=== PATIENT | male | born 1970 | race Caucasian/White ===

== ENCOUNTER 2016-05-18 19:54 | Emergency (ER) | payer OTHER ==
[~2016-05-18] VITALS: Ht 210.8 cm; Wt 103.0 kg
[2016-05-18 19:58] VITALS: TEMP 36.7; Ht 210.8 cm; Wt 103.0 kg
[2016-05-18] MEDS ORDERED: IBUP-1050 PO (20:56)
[2016-05-18] MEDS ORDERED: DOXY100C2 PO (21:13)
[2016-05-18 21:15] VITALS: BP 129/60; PULSE 62; O2SAT 95
[2016-05-18] MEDS ORDERED: DOXYCYCLINE HYCLATE 100 MG CAP PO ONE (21:15)
--- NOTE | 2016-05-19 00:36 | EMERGENCY ROOM VISIT NOTE ---
History Report prepared by Sarah: Skylar Mcintosh Under the Supervision of: Dr. Zachariah Verma M.D. First contact with patient: 20:39 Chief Complaint: KNEEPAIN Stated Complaint: RIGHT KNEE PAIN AND SWELLING History of Present Illness The patient is a 45 year old male who presents to the Emergency Room with complaints of constant right knee pain beginning 3 hours prior to arrival. 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 He notes that the knee began to become stiff and then swollen. The knee is also tender to touch over the patella. He denies injury or trauma to the knee, fever , vomiting, chest pain, shortness of breath, abdominal pain, history of knee surgery, or recent illness. He was not working today. He does state that he had a scab over the knee and has a habit of picking at it. 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 Review of Systems See HPI for pertinent positives & negatives. A total of 6 systems reviewed and were otherwise negative. Past Medical & Surgical Medical Problems: (1) No Known Active Medical Problems Family History Patient reports no known family medical history. Social History Smoking Status: Never Smoker Alcohol Use: occasionally Marital Status: Housing Status: lives with family Occupation Status: employed Current/Historical Medications Scheduled Doxycycline Hyclate (Vibramycin), 100 MG PO BID Scheduled PRN Ibuprofen (Advil), 400 MG PO Q6 PRN for Pain Allergies Coded Allergies: No Known Allergies (Unverified , 05/18/16) Physical Exam Vital Signs Date Time Temp Pulse Resp B/P Pulse Ox O2 Delivery O2 Flow Rate FiO2 05/18/16 21:15 62 16 129/60 95 Room Air 05/18/16 19:58 36.7 70 16 114/72 96 Room Air Physical Exam Constitutional: Vital signs reviewed. Eyes: Pupils are equal round reactive to light. Conjunctiva are noninjected. ENT: Pharynx is clear without erythema or exudate. Mucous membranes are moist. Neck supple without meningeal signs. Respiratory: Clear to auscultation bilaterally. Breath sounds are equal bilaterally. Cardiovascular: Regular rate and rhythm. No rubs or gallops. GI: Soft, nondistended and nontender. Bowel sounds are present. Musculoskeletal: Patellar swelling with overlying erythema. No significant joint line tenderness or joint laxity. Abrasion over patella. Integumentary: As above. Neurological: The patient is awake and alert. No focal deficits. Psychiatric: Normal affect. Medical Decision & Procedures Medications Administered Medications (Trade) Dose Ordered Sig/Jeanne Route Start Time Stop Time Status Last Admin Dose Admin Doxycycline Hyclate (Vibramycin Cap) 100 mg ONE ONCE PO 05/18/16 21:15 05/18/16 21:16 DC 05/18/16 21:14 100 MG ED Course 2101: The patient was evaluated in room C8. A complete history and physical exam was performed. 2113: Vibramycin Cap 100 mg PO. 2116: Upon reevaluation, the patient appeared to have improvement of his symptoms. I discussed tonight's findings with him. He verbalized agreement of the treatment plan. He was discharged home. Medical Decision This is a 45-year-old male who presents with right knee pain. Differential diagnosis includes bursitis, septic bursitis, cellulitis. I did perform a limited focused review of portions of the patient's old chart on the electronic medical record. The patient has had no prior visits to this hospital. I did evaluate the patient as noted above. The patient has prepatellar swelling and erythema. He does have an abrasion which she states he has been picking at the area he appears to have a prepatellar bursitis with an overlying cellulitis. The has had no systemic symptoms such as fever or vomiting. He has no significant tenderness over the joint line and has no signs of joint effusion. I did recommend antibiotic treatment and close follow up with his doctor. He was treated with doxycycline and discharged with a prescription for doxycycline. He will use cool compresses and NSAIDs as well. He was discharged in good condition. Impression Primary Impression: Cellulitis of right knee Additional Impression: Bursitis of right knee Scribe Attestation The scribe's documentation has been prepared under my direct and personally reviewed by me in its entirety. I confirm that the note above accurately reflects all work, treatment, procedures, and medical decision making performed by me. Departure Information Dispostion Home / Self-Care Prescriptions Doxycycline Hyclate (VIBRAMYCIN) 100 Mg Cap 100 MG PO BID for 10 Days, #19 CAP Prov: Zachariah Verma M.D. 05/18/16 Referrals No Doctor, Assigned (PCP) Forms HOME CARE DOCUMENTATION FORM, IMPORTANT VISIT INFORMATION Patient Instructions ED Bursitis, My [facility] Additional Instructions You have been examined and treated today on an emergency basis only. This is not a substitute for, or an effort to provide, complete comprehensive medical care. It is impossible to recognize and treat all injuries or illnesses in a single emergency department visit. It is therefore important that you follow up closely with your physician in 2-3 days. Call as soon as possible for an appointment. Return for worsening symptoms or if you develop fever, vomiting, or any other concerning symptoms. Problem Qualifiers
[2016-05-23] MEDS ORDERED: LCTX PO (15:26)
[2016-05-23] MEDS ORDERED: DCL250 PO (15:26)
== END 2016-05-18 21:23 | disposition home or self-care (01) ==
LOC: C.EDB 19:55 → C.EDC 21:23
DX: L03.115 Cellulitis of right lower limb (principal); M70.51 Other bursitis of knee, right knee

== ENCOUNTER 2016-05-20 09:42 | Inpatient (IN) | payer OTHER ==
[~2016-05-20] VITALS: Ht 210.8 cm; Wt 99.3 kg
[~2016-05-20 09:42] MED LIST: DOXY100C2 PO; IBUP-1050 PO
[2016-05-20] MEDS ORDERED: IBUP-1050 PO (10:08)
[2016-05-20] MEDS ORDERED: KETOROLAC TROMETHAMINE 30 MG/ML VIAL IV STA (10:29)
--- NOTE | 2016-05-20 10:44 | EMERGENCY ROOM VISIT NOTE ---
ED Visit Note First contact with patient: 10:33 Patient evaluated with resident. 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 There are several scattered abrasions of the anterior knee and patient clearly report that his symptoms started on on the anterior knee and then spread more deeply. He is compliant with the Doxycycline. Patient appears ill but not toxic. Zosyn IV and weight based Vancomycin ordered. Patient to be admitted.
[2016-05-20] MEDS ORDERED: PIPERACILLIN/TAZOBACTAM 4.5 GM/100ML D5W IV STA (10:47)
[2016-05-20] MEDS ORDERED: ACETAMINOPHEN 500 MG TAB PO STA (10:47)
[2016-05-20] MEDS ORDERED: VANCOMYCIN INJ 1,000 MG in SODIUM CHLORIDE 0.9% 250ML 250 ML IV STA (10:47)
[2016-05-20] MEDS ORDERED: VANCOMYCIN INJ 2,000 MG in SODIUM CHLORIDE 0.9% 500ML 500 ML IV ONE (11:00)
--- NOTE | 2016-05-20 11:07 | EMERGENCY ROOM VISIT NOTE ---
History First contact with patient: 10:12 Chief Complaint: KNEEPAIN Stated Complaint: INFECTION IN RIGHT KNEE, CANNOT WALK History of Present Illness The patient is a 45 year old male who presents to the Emergency Room with complaints of worsening pain and swelling in the right knee. Patient notes that he was seen 2 days ago. Impressions as rupture pre-patellar bursa with cellulitis. Imaging was not done. Patient was discharged on Doxycycline. Since going home, pain and swelling have worsening. For the past day he has noticed streaking proximally in the thigh with associated tenderness and warmth. He is having progressively difficulty with weight bearing and the knee is extremely stiff and painful with flexion. He has been having fevers at home , reporting a temperature 101.5 despite getting Motrin. He gets pain with ambulation and gets nauseated with ambulation. He denies trauma to the knee. Had some scabs on the front of the knee. He denies tick bite. He denies consumption of alcohol and high quantities of meat. He denies any history of joint swelling previously. Review of Systems A 10 point review of systems was negative unless stated above. Past Medical/Surgical History Medical Problems: (1) No Known Active Medical Problems Family History Patient reports no known family medical history. 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 Eyes: Pupils equal, round, and reactive to light. Extraocular muscles are intact. No proptosis. No photophobia. ENT: Mucous membranes are moist. Oropharynx is clear. No sinus tenderness. TMs are clear bilaterally. Cardiovascular: Heart with a regular rate and rhythm. Pulses are palpable and symmetric in all 4 extremities. No pedal edema appreciated. Respiratory: Lungs clear to auscultation bilaterally. No wheezes, rales, or rhonchi appreciated. No accessory muscle use. No retractions. No increased work of breathing. GI: Abdomen soft, nontender, nondistended. Normal active bowel sounds. No abdominal hernias appreciated. No rebound. No guarding. : No CVA tenderness appreciated. Musculoskeletal: No midline cervical or vertebral tenderness. No gross deformities. Right Knee: Marked edema with fluid palpated in the pre-patella space. Patella extremely tender to translation; Restricted range of Motion of the knee to 25 degrees. Diffuse joint line tenderness including quadriceps and patella tendon Marked streaking up the thigh with warmth of the skin Left Knee normal examination Integumentary: Warm, dry, no rashes appreciated. Neurological: Patient awake, alert, and oriented x 3. Cranial nerves two through 12 grossly intact. Motor 5 out of 5 strength bilateral upper and lower extremities. Lymph: No cervical lymphadenopathy appreciated. Medical Decision & Procedures Laboratory Results Test 05/20/16 10:29 Medications Administered Vancomycin 2 g IV Zosyn 4.5 g IV Toradol 30 mg IV Tylenol 1 g IV ED Course 10:15 - Patient seen and assessed Lab orders placed: CBC, BMP, ESR/CRP, Lyme Serology, Blood cultures x 2 Toradol 30 mg IV inj x 1 10:40 - Precepted case with Dr. Barbosa Vancomycin 2 g IV and Zosyn 4.5 g IV one dose each Tyenol 1 g PO 11:00 - Discussion of case; patient failing outpatient antibiotics; febrile with joint swelling and steaking lymphangitis up the thigh Decision made to admit patieny Labs still pending, but patient meets admission criteria based on failed outpatient treatment. 11: 20 - Discussed admission with patient for IV antibiotics; patient agreeable admission Discussed case with CHUCK Hammond regarding case; hospitalist service agrees to admission for IV antibiotics Medical Decision History obtained, physical examination performed and EMR reviewed. Patient presents with knee swelling despite antibiotic treatment as outpatient. Differentials include soft tissue causes such as cellulitis, bursitis, tendonitis Intra-articular causes include: septic joint, intra-articular trauma, Lyme arthritis, crystal arthropathy (gout, pseudogout), inflammatory arthropathy Patient presenting with history of fevers and worsening joint pain and swelling. Noted to be stuff on examination with marked sub-patellar effusion. Considered aspiration of knee joint given swelling; however, this was precluded by risk of introducing infection to the joint if there is an overlying infection with spared intra-articular space. Labs were pending at the time of admission. However, he does meet admission criteria for the following reasons: Worsening pain and swelling, documented fevers at home, worsening lymphangitis spread. Patient requires admission for IV antibiotics. Blood cultures were obtained and empiric doses of Vancomycin and Zosyn. Patient was admitted to the hospitalist service in stable condition. Impression Primary Impression: Cellulitis of right knee Additional Impression: Bursitis of right knee Departure Information Dispostion Being Evaluated By Hospitalist Condition GOOD Referrals No Doctor, Assigned (PCP) Patient Instructions My [facility] Problem Qualifiers
[2016-05-20 11:32] LABS: BASO % 0.1 %; BASO ABS # 0.01 K/uL (0-0.2); COMPLETE YES; EOS % 0.1 %; HEMATOCRIT 41.2 % (42-52); IG% 0.2 %; LYMPH % 4.8 %; LYMPH ABS # 0.74 K/uL (1.2-3.4); MEAN CELL VOLUME 89.6 fL (80-100); MEAN CORPUSCULAR HEMOGLOBIN 30.2 pg (25-34); MEAN CORPUSCULAR HGB CONC 33.7 g/dl (32-36); MEAN PLATELET VOLUME 10.7 fL (7.4-10.4); MONO % 6.9 %; NEUT % 87.9 %; PLATELET COUNT 123 K/uL (130-400); WHITE BLOOD COUNT 15.38 K/uL (4.8-10.8)
[2016-05-20 11:48] LABS: BUN/CREATININE RATIO 12.5 (10-20); C-REACTIVE PROTEIN 14.6 mg/dl (0-0.29); CREATININE 1.1 mg/dl (0.60-1.40); POTASSIUM 3.6 mmol/L (3.5-5.1)
[2016-05-20] MEDS ORDERED: MoRPHine SULFATE 4 MG/ML 1 ML CARP\\VIAL IV PRN (12:00)
[2016-05-20] MEDS ORDERED: OXYCODONE/ACETAMINOPHEN 5-325 TAB PO PRN (12:00)
[2016-05-20] MEDS ORDERED: ONDANSETRON INJ 2 MG/ML 2 ML VIAL IV PRN (12:00)
[2016-05-20] MEDS ORDERED: ACETAMINOPHEN 325 MG TAB PO PRN (12:00)
--- NOTE | 2016-05-20 12:28 | History and Physical ---
History & Physical Date & Time of Service: May 20, 2016 at 12:04 Chief Complaint: Right Knee Pain, Swelling, Redness Primary Care Physician: Dr. Kirstin Burch History of Present Illness 45 year old male who presents to the ER with increasing right knee pain, swelling, and redness. Patient was seen in the ER on 05/18 for right knee pain, redness, and swelling. Patient reports he first noticed the redness Friday evening. He reports the redness was localized to the top of the knee. He had minimal pain and edema. Patient was seen in the ER and diagnosed with cellulitis and bursitis. He was discharged on doxycycline and instructed to take NSAIDs. Patient reports edema has been increasing as well as the pain. He reports he is unable to bear weight on his RLE. He has pain with minimal movement. There is a scab noted to the right knee. Patient reports he kneels a lot and has rough skin on his knees that he picks at at times. When he woke up this morning redness started to extend up his thigh. He also has been running fevers as high as 103 despite taking Motrin around the clock. He reports nausea at times which he feels is due to the high level of pain he has been experiencing. No vomiting, diarrhea, or abdominal pain. He denies chest pain and shortness of breath. No lightheadedness, dizziness, diaphoresis, or syncopal events. In the ER, WBC is 15K. Vitals are stable and the remainder of the labs are unremarkable. Patient was given Vanco and Zosyn. Past Medical/Surgical History Surgical Problems: (1) S/P left knee arthroscopy Status: Chronic Family History Patient reports no known family medical history. negative for premature CAD, DM, or CVA Social History Smoking Status: Never Smoker Alcohol Use: occasionally Marital Status: Immunizations History of Tetanus Vaccine?: Yes Tetanus Immunization Date: August 26, 2006 Allergies Coded Allergies: No Known Allergies (Unverified , 05/18/16) Home Medications Scheduled Doxycycline Hyclate (Vibramycin), 100 MG PO BID Scheduled PRN Ibuprofen (Advil), 400 MG PO Q6 PRN for Pain Review of Systems 10 point review of systems was completed with the pertinent positives and negatives noted per the HPI Physical Exam Vital Signs Date Time Temp Pulse Resp B/P Pulse Ox O2 Delivery O2 Flow Rate FiO2 05/20/16 11:32 82 18 148/63 99 Room Air 05/20/16 09:46 36.6 88 18 113/74 96 Room Air General Appearance: no apparent distress Head: normocephalic Eyes: normal inspection ENT: hearing grossly normal Neck: supple, no JVD Respiratory/Chest: lungs clear, normal breath sounds, no respiratory distress Cardiovascular: regular rate, rhythm, no edema, normal peripheral pulses Abdomen/GI: normal bowel sounds, non tender, soft Extremities/Musculoskelatal: + pertinent finding (right prepatellar swelling, tender to palpation and pain with minimal movement, erythema noted over right knee extending medially, laterally, posteriorly and up the thigh, warm to touch) Neurologic/Psych: no motor/sensory deficits, alert, normal mood/affect, oriented x 3 Skin: normal color, warm/dry Diagnostics Laboratory Results Results Past 24 Hours Test 05/20/16 11:05 Range/Units White Blood Count 15.38 4.8-10.8 K/uL Red Blood Count 4.60 4.7-6.1 M/uL Hemoglobin 13.9 14.0-18.0 g/dL Hematocrit 41.2 42-52 % Mean Corpuscular Volume 89.6 80-100 fL Mean Corpuscular Hemoglobin 30.2 25-34 pg Mean Corpuscular Hemoglobin Concent 33.7 32-36 g/dl Platelet Count 123 130-400 K/uL Mean Platelet Volume 10.7 7.4-10.4 fL Neutrophils (%) (Auto) 87.9 % Lymphocytes (%) (Auto) 4.8 % Monocytes (%) (Auto) 6.9 % Eosinophils (%) (Auto) 0.1 % Basophils (%) (Auto) 0.1 % Neutrophils # (Auto) 13.52 1.4-6.5 K/uL Lymphocytes # (Auto) 0.74 1.2-3.4 K/uL Monocytes # (Auto) 1.06 0.11-0.59 K/uL Eosinophils # (Auto) 0.02 0-0.5 K/uL Basophils # (Auto) 0.01 0-0.2 K/uL RDW Standard Deviation 42.9 36.4-46.3 fL RDW Coefficient of Variation 13.1 11.5-14.5 % Immature Granulocyte % (Auto) 0.2 % Immature Granulocyte # (Auto) 0.03 0.00-0.02 K/uL Erythrocyte Sedimentation Rate 14 0-14 mm/hr Sodium Level 142 136-145 mmol/L Potassium Level 3.6 3.5-5.1 mmol/L Chloride Level 106 98-107 mmol/L Carbon Dioxide Level 30 21-32 mmol/L Anion Gap 6.0 3-11 mmol/L Blood Urea Nitrogen 14 7-18 mg/dl Creatinine 1.10 0.60-1.40 mg/dl Est Creatinine Clear Calc Drug Dose 120.4 ml/min Estimated GFR () 94.1 Estimated GFR (Non- 81.2 BUN/Creatinine Ratio 12.5 10-20 Random Glucose 99 70-99 mg/dl Calcium Level 9.0 8.5-10.1 mg/dl C-Reactive Protein 14.60 0-0.29 mg/dl Microbiology Results 05/20/16 Blood Culture, Received Pending 05/20/16 Blood Culture, Received Pending Impression Assessment and Plan RIGHT KNEE CELLULITIS, POSSIBLE INFECTED BURSITIS - admit to med/surg - presenting with increasing pain, erythema, and edema to the right knee over the past 3 days; was seen in the ER on 05/18 and given doxycycline with no improvement in his symptoms - WBC 15k on presentation, no other SIRS criteria - prepatellar swelling noted with overlying cellulitis - knee XR pending - s/p Vanco and Zosyn in ED, will continue with - blood cultures pending - ortho consult, input appreciated DVT PROPHYLAXIS - SCDs DISPO - In my clinical judgment this beneficiary meets acute admission criteria, established by [facility], that includes being hospitalized through two midnights. Attending Note: Patient is a 45 yr old male with no significant PMH of presents with history of right knee swelling, redness, pain since Friday which has been progressively worsening and patient has been having difficulty with ambulation. Reports associated fever. Patient denies any discharge, trauma, insect bite. Patient has an elevated white count and X ray of the knee is suggestive of prepatellar bursitis. Physical Exam: Vitals signs as noted above General Appearance:Moderately built and nourished, no apparent distress Head: normocephalic, Atraumatic Eyes: normal inspection, EOMI, PERRLA, Anicteric Neck: supple, no JVD, Trachea midline Respiratory/Chest: Normal Vesicular breath sounds, CTA, No accessory muscle use Cardiovascular: S1, S2, NSR, No murmur Abdomen/GI:Soft, Non tender, Bowel sounds present, No guarding/rigidity/ organomegaly Extremities/Musculoskelatal: Right knee is erythematous, swollen, tender and has decreased ROM Neurologic/Psych:AAOX3, grossly no focal neurological deficits Skin:normal color,warm Assessment and Plan: Right knee cellulitis/prepatellar bursitis: Check blood cultures/lactate levels IV antibiotics Pain control Ortho consulted Consider IV fluids if lactate levels elevated I personally reviewed the record. Patient is interviewed and examined at bedside. Patient's care is coordinated with Marta Elias MEDICAL BILLING SPECIALIST. Please refer to the documentation above for details of patient's presentation and for discussion of other issues. VTE Prophylaxis VTE Risk Assessment Done? Y/N: Yes Risk Level: Low
--- NOTE | 2016-05-20 12:31 | DIAGNOSTIC IMAGING REPORT ---
RIGHT KNEE 1 OR 2 VIEWS ROUTINE CLINICAL HISTORY: Worsening erythema and swelling of right knee. COMPARISON: None FINDINGS: Alignment of the right knee is anatomic. There is no joint effusion or fracture. No osseous lesion is present. There is marked prepatellar soft tissue swelling. IMPRESSION: 1. No acute fracture or joint effusion of the right knee. 2. Marked prepatellar soft tissue swelling. While nonspecific, the findings favor prepatellar bursitis. Electronically signed by: Presley Edward M.D. 05/20/2016 12:29 PM Dictated Date/Time: 05/20/2016 12:28 PM
[2016-05-20 12:34] LABS: LYME DISEASE AB IGG NEG (NEG); LYME DISEASE AB IGM NEG (NEG)
[2016-05-20] MEDS ORDERED: PIPERACILL/TAZOBAC CONSULT ACTIVE PRN (14:30)
[2016-05-20] MEDS ORDERED: VANCOMYCIN CONSULT ACTIVE PRN (14:30)
[2016-05-20 15:30] VITALS: BP 112/66; PULSE 69; TEMP 36.6; O2SAT 99; Ht 210.8 cm; Wt 99.3 kg
--- NOTE | 2016-05-20 16:07 | Pharmacy Progress Note ---
Pharmacy Antibiotic Consult Date of Service: May 20, 2016. Pharmacy Dosing Scope Pharmacy is consulted to initiate Vancomycin and Zosyn IV dosing therapy, order appropriate labs and adjust drug dose/frequency. Subjective The patient is a 45 year old male admitted on May 20, 2016 at 11:58. Objective Height (Feet): 6 Height (Inches): 11.00 Weight (Kilograms): 99.300 Lab Results (24hrs): Laboratory Tests Test 05/20/16 11:05 BUN/Creatinine Ratio 12.5 Blood Urea Nitrogen 14 mg/dl Creatinine 1.10 mg/dl White Blood Count 15.38 K/uL Red Blood Count 4.60 M/uL Hemoglobin 13.9 g/dL Hematocrit 41.2 % Mean Corpuscular Volume 89.6 fL Mean Corpuscular Hemoglobin 30.2 pg Mean Corpuscular Hemoglobin Concent 33.7 g/dl Platelet Count 123 K/uL Mean Platelet Volume 10.7 fL Neutrophils (%) (Auto) 87.9 % Lymphocytes (%) (Auto) 4.8 % Monocytes (%) (Auto) 6.9 % Eosinophils (%) (Auto) 0.1 % Basophils (%) (Auto) 0.1 % Neutrophils # (Auto) 13.52 K/uL Lymphocytes # (Auto) 0.74 K/uL Monocytes # (Auto) 1.06 K/uL Eosinophils # (Auto) 0.02 K/uL Basophils # (Auto) 0.01 K/uL Micro Results: Item Value Date Time Blood Culture Received 05/20/16 1114 Blood Pending Blood Culture Received 05/20/16 1105 Blood Pending Assessment & Plan * Pt admitted with cellulitis, possible septic knee. Ortho consulted. * 2/2 BCx pending Vancomycin: * Pt received a Vancomycin 20 mg/kg (2000mg IV) load in the ED. * Kidney function is good; Scr = 1.1, Crcl > 100 ml/min. * No significant risk factors for accumulation. If anything, I suspect the pt will clear Vancomycin quickly. * Start maintenance dose of Vancomycin 15mg/kg IV. * Start first dose in 6 hours to make up for pt not receiving a full 25mg/kg loading dose then proceed with Vancomycin 1500 mg IV [id number]. * Obtain trough prior to the 3rd maintenance dose on 05/21 at 1000. Goal trough 15 - 20 mcg/ml for possible joint infection. Zosyn: * Pt received a loading dose of Zosyn 4.5gm IV x 1 in the ED. * Start maintenance dose of Zosyn 3.3.75gm IV q8 hours (EI) for Crcl > 20 ml/min , BMI < 35 kg/m2, and non-ICU status. Pharmacy will continue to follow and will adjust dose/frequency as necessary. Thank you
[2016-05-20] MEDS ORDERED: INFLUENZA VIRUS QUAD VACCINE 0.5 ML SYR IM. ONE (16:15)
[2016-05-20] MEDS ORDERED: INFLUENZA ADMINISTRATION CHARGE ONE (16:15)
--- NOTE | 2016-05-20 17:07 | Anesthesiology Progress Note ---
Anesthesia Progress Note Date of Service May 20, 2016. Progress Notes The patient is a 45 y/o male scheduled for an I and D of R patella due to septic bursitis. The patient has had a swollen knee for several days. He was started on Doxycycline and Motrin several days ago but his knee has continued to worsen so he was admitted and started on IV abx. He has no other significant PMH. He has had no problems with anesthesia. Labs are significant for WBC 15.4 and platelet 123. Electrolytes are normal. On exam the patient has MP 1 airway with good neck extension. Teeth are intact. Heart is RRR and lungs are clear. His R knee appears red and swollen. The patient is an ASA 2. He was consented for general anesthesia. The patient was counseled to remain NPO after midnight except for sips of water with pills.
--- NOTE | 2016-05-20 17:53 | CONSULTATION REPORT ---
DATE OF CONSULTATION: 05/20/2016 ER CONSULT CHIEF COMPLAINT: Right knee pain. HISTORY OF PRESENT ILLNESS: This patient is a 45-year-old male who presents with a history of pain and discomfort in his right knee. He was apparently seen 2 days prior for redness and swelling of the knee. He was diagnosed with cellulitis and bursitis and placed on doxycycline. The patient has reported increased pain, swelling and fever and increased redness. He presented to the Emergency Room today with what appeared to be worsening septic prepatellar bursitis and is admitted now. MEDICAL AND SURGICAL HISTORY: See admission history and physical. ALLERGIES: No known medical allergies. MEDICATION: Doxycycline 100 b.i.d. PHYSICAL EXAMINATION: GENERAL: Young man, appears his stated age. He is in no distress. EXTREMITIES: Exam of the lower extremities: The right knee shows an extremely large prepatellar collection that is red and warm, that is approximately the size of a large egg. There is cellulitis in the surrounding tissues reported by family member, has decreased since admission. There is some scabbing that is dry on the prepatellar with roughening of the skin to assist him with chronic kneeling. This is also present on the opposite knee. Neurological and vascular function are intact. Radiographs show very significant prepatellar swelling. White blood cell count is elevated at 15.3, CRP is 14.6. IMPRESSION: Septic prepatellar bursitis. PLAN: The patient has just recently eaten. He seems stable on IV antibiotics. He will need operative incision and drainage and most likely packing. We will plan for this on 05/21. This was discussed with the patient. He will be n.p.o. after midnight and plan for surgery in the morning.
[2016-05-20] MEDS: VANCOMYCIN INJ 1,500 MG in SODIUM CHLORIDE 0.9% 500ML 500 ML IV SCH (18:17)
[2016-05-20] MEDS: PIPERACILL/TAZOBAC IV 3.375 GM in DEXTROSE 5% 100ML IV SCH (18:17)
[2016-05-20 22:56] VITALS: BP 108/68; PULSE 70; TEMP 36.8; O2SAT 95
[2016-05-21] VITALS (7 sets, daily range): BP systolic 101–114; BP diastolic 60–69; PULSE 54–82; TEMP 36.2–36.9; O2SAT 93–97
[2016-05-21] MEDS ORDERED: LORAZEPAM 0.5 MG TAB PO STA (00:31)
[2016-05-21] MEDS: PIPERACILL/TAZOBAC IV 3.375 GM in DEXTROSE 5% 100ML IV SCH ×3 (02:14→17:51)
[2016-05-21] MEDS: VANCOMYCIN INJ 1,500 MG in SODIUM CHLORIDE 0.9% 500ML 500 ML IV SCH ×2 (02:14→09:35)
[2016-05-21 06:56] LABS: HEMATOCRIT 35.6 % (42-52); MEAN CELL VOLUME 90.6 fL (80-100); MEAN CORPUSCULAR HEMOGLOBIN 30.3 pg (25-34); MEAN CORPUSCULAR HGB CONC 33.4 g/dl (32-36); PLATELET COUNT 104 K/uL (130-400); RED BLOOD COUNT 3.93 M/uL (4.7-6.1); WHITE BLOOD COUNT 11.44 K/uL (4.8-10.8)
[2016-05-21 07:23] LABS: BUN/CREATININE RATIO 12.9 (10-20); CALCIUM 8.5 mg/dl (8.5-10.1); POTASSIUM 3.8 mmol/L (3.5-5.1)
[2016-05-21] MEDS ORDERED: HYDROmorphone INJ 1 MG/ML SYR IV PRN (08:30)
[2016-05-21] MEDS ORDERED: FENTANYL CITRATE INJ 50 MCG/1 ML 2 ML VIAL IV PRN (08:30)
[2016-05-21] MEDS ORDERED: ATROPINE SULFATE 0.1 MG/ML 5ML SYR IV PRN (08:30)
[2016-05-21] MEDS ORDERED: EpHEDrine SULFATE INJ 50 MG/ML AMP IV PRN (08:30)
[2016-05-21] MEDS ORDERED: ONDANSETRON INJ 2 MG/ML 2 ML VIAL IV PRN ×2 (08:30→15:30)
[2016-05-21] MEDS ORDERED: VANCOMYCIN TROUGH ONE (09:30)
--- NOTE | 2016-05-21 11:53 | Pharmacy Progress Note ---
Pharmacy Antibiotic Prog Note Date of Service: May 21, 2016. Subjective: The patient is currently receiving Vancomycin 1500 mg IV every 8 hours. The patient is currently on day # 2 of IV therapy. Objective: Height (Feet): 6 Height (Inches): 11.00 Weight (Kilograms): 99.300 Levels: Item Value Date Time Vancomycin Level Trough 12.5 mcg/ml 05/21/16 0933 Lab Results (24hrs): Laboratory Tests Test 05/21/16 06:22 BUN/Creatinine Ratio 12.9 Blood Urea Nitrogen 13 mg/dl Creatinine 1.00 mg/dl White Blood Count 11.44 K/uL Micro Results: Item Value Date Time Blood Culture Received 05/20/16 1114 Blood Pending Blood Culture Received 05/20/16 1105 Blood Pending Recent Pertinent Medications: Item Value Date Time Piperacillin Sod/ 115 ml @ 28.75 mls/hr 05/20/16 1800 Tazobactam Sod Q8H/IV 05/21/16 0935 3.375 gm/Dextrose Assessment & Plan: ASSESSMENT: * Pt admitted with cellulitis/septic prepatellar bursitis, initiated on Vancomycin and Zosyn IV * 2/2 BCx remain pending * Pt to have I/D today 05/21/16 PLAN: Vancomycin: * Renal function remains good/stable. No significant risk for drug accumulation. * Trough ordered early to ensure safety/efficacy of dosing. I do not feel that level will rise much more than 15 mcg/mL on current regimen. * My plan is to adjust preemptively prior to knowing true steady state to make sure my dose is more closer to a trough of 20 mcg/mL given indication of septic joint. * Increase dose to Vancomycin 1750 mg IV every 8 hours. * Obtain trough prior to the 0200 dose 05/23/16 @ 0130. * Goal trough 15 - 20 mcg/ml (septic joint) Zosyn: * Continue maintenance dose of Zosyn 3.3.75gm IV q8 hours (EI) for Crcl > 20 ml/ min, BMI < 35 kg/m2, and non-ICU status. Pharmacy will continue to follow and will adjust dose/frequency as necessary. Thank you
[2016-05-21] MEDS ORDERED: MIDAZOLAM HCL 1 MG/ML 2ML VIAL ONE (12:24)
[2016-05-21] MEDS ORDERED: FENTANYL CITRATE INJ 50 MCG/1 ML 2 ML VIAL ONE ×3 (12:24→15:28)
--- NOTE | 2016-05-21 13:00 | Progress Note ---
Internal Med Progress Note Date of Service: May 21, 2016. Provider Documentation: SUBJECTIVE: The patient was seen and examined Complains fo pain right knee Denies any fever ,chills No CP,palpitation,SOB OBJECTIVE: Vital Signs-as noted below Exam: General-No distress at rest Eyes-normal ENT-normal Neck-supple Lungs-clear to ausucltate bilaterally Heart-Regular,no murmur Abdomen-Benign,no masses,bowel sound present Extremities-No edema Right Knee is swollen anteriorly ,redness with tenderness Knee movement is painful in all direction Neuro-AAOx3 Lab data as noted below. ASSESSMENT & PLAN: Prepatellar Bursitis/Cellulitis for Right Knee - presenting with increasing pain, erythema, and edema to the right knee over the past 3 days; -was seen in the ER on 05/18 and given doxycycline with no improvement in his symptoms -started on IV Vanco and Zosyn in ED, will continue with - blood cultures pending - ortho consult, input appreciated -Clinically stable -likely to go for surgery this afternoon DVT PROPHYLAXIS - SCDs DISPO Awaited Vital Signs: Date Time Temp Pulse Resp B/P Pulse Ox O2 Delivery O2 Flow Rate FiO2 05/21/16 08:13 36.9 82 16 114/69 97 Room Air 05/21/16 07:40 Room Air 05/20/16 23:45 Room Air 05/20/16 22:56 36.8 70 17 108/68 95 Room Air 05/20/16 15:30 36.6 69 16 112/66 99 Room Air 05/20/16 14:51 73 18 110/60 100 05/20/16 14:46 73 18 110/60 100 Room Air 05/20/16 14:12 74 16 105/55 99 Room Air 05/20/16 13:30 72 20 116/51 100 Room Air Lab Results: Results Past 24 Hours Test 05/20/16 15:15 05/21/16 06:22 05/21/16 09:33 Range/Units Lactic Acid Level 1.1 0.4-2.0 mmol/L White Blood Count 11.44 4.8-10.8 K/uL Red Blood Count 3.93 4.7-6.1 M/uL Hemoglobin 11.9 14.0-18.0 g/dL Hematocrit 35.6 42-52 % Mean Corpuscular Volume 90.6 80-100 fL Mean Corpuscular Hemoglobin 30.3 25-34 pg Mean Corpuscular Hemoglobin Concent 33.4 32-36 g/dl RDW Standard Deviation 44.4 36.4-46.3 fL RDW Coefficient of Variation 13.3 11.5-14.5 % Platelet Count 104 130-400 K/uL Mean Platelet Volume 11.0 7.4-10.4 fL Sodium Level 143 136-145 mmol/L Potassium Level 3.8 3.5-5.1 mmol/L Chloride Level 109 98-107 mmol/L Carbon Dioxide Level 27 21-32 mmol/L Anion Gap 7.0 3-11 mmol/L Blood Urea Nitrogen 13 7-18 mg/dl Creatinine 1.00 0.60-1.40 mg/dl Est Creatinine Clear Calc Drug Dose 132.4 ml/min Estimated GFR () 105.6 Estimated GFR (Non- 91.1 BUN/Creatinine Ratio 12.9 10-20 Random Glucose 96 70-99 mg/dl Calcium Level 8.5 8.5-10.1 mg/dl Vancomycin Level Trough 12.5 SEE COMMENT mcg/ml
[2016-05-21] MEDS ORDERED: ONDANSETRON INJ 2 MG/ML 2 ML VIAL ONE (14:00)
[2016-05-21] MEDS ORDERED: PROPOFOL IV EMULSION 10 MG/ML 20 ML VIAL IV ONE ×2 (14:33→14:43)
[2016-05-21] MEDS ORDERED: LIDOCAINE HCL 2% 2 ML VIAL (20MG/ML) ONE (14:33)
[2016-05-21] MEDS ORDERED: DEXAMETHASONE SOD INJ 4 MG/ML VIAL ONE (14:33)
[2016-05-21] MEDS ORDERED: BACITRACIN 50,000 UNITS IR ONE (15:08)
--- NOTE | 2016-05-21 15:16 | [facility] Post Operative Brief Note ---
Immediate Operative Summary Operative Date May 21, 2016. Pre-Operative Diagnosis Septic right prepatellar bursitis Post-Operative Diagnosis Septic right prepatellar bursitis Procedure(s) Performed Open Excision and Drainage Right Pre-Patellar Septic Bursa Surgeon Dr. Jesus Manuel Mckeon Damper Fitter Surgeon(s) None Estimated Blood Loss 5ml Findings septic bursa Specimens A. RIGHT KNEE PREPATELLA BURSA Complication(s) None Disposition Recovery Room / PACU
[2016-05-21] MEDS ORDERED: HYDROmorphone INJ 1 MG/ML SYR ONE (15:28)
[2016-05-21] MEDS ORDERED: ALUMINUM/MAGNESIUM/SIMETH (MAALOX MAX) 30 ML UDC PO PRN (15:30)
[2016-05-21] MEDS ORDERED: OXYCODONE HCL IR 5 MG TAB (IMMEDIATE RELEASE) PO PRN (15:30)
[2016-05-21] MEDS ORDERED: BISACODYL 10 MG SUPP PR PRN (15:30)
[2016-05-21] MEDS ORDERED: DiphenhydrAMINE HCL 50 MG/ML VIAL IV PRN (15:30)
[2016-05-21] MEDS ORDERED: METOCLOPRAMIDE HCL INJ 5 MG/ML 2 ML VIAL IV PRN (15:30)
[2016-05-21] MEDS ORDERED: ZOLPIDEM TARTRATE 5 MG TAB PO PRN (15:30)
[2016-05-21] MEDS ORDERED: SOD PHOSPHATE/SOD BIPHOSPHATE ENEMA 132 ML BTL PR PRN (15:30)
--- NOTE | 2016-05-21 16:20 | Anesthesiology Progress Note ---
Anesthesia Post Op Note Date & Time May 21, 2016 at 16:19 Vital Signs Pain Intensity: 3 Vital Signs Past 12 Hours Date Time Temp Pulse Resp B/P Pulse Ox O2 Delivery O2 Flow Rate FiO2 05/21/16 15:44 36.9 122/65 05/21/16 15:42 65 16 99 05/21/16 15:42 64 05/21/16 15:38 120/65 05/21/16 15:37 64 97 05/21/16 15:37 64 16 05/21/16 15:33 122/62 05/21/16 15:32 65 15 99 05/21/16 15:32 65 15 05/21/16 15:28 130/71 05/21/16 15:27 70 15 99 05/21/16 15:27 69 15 05/21/16 15:23 127/73 05/21/16 15:22 66 12 100 05/21/16 15:22 66 12 05/21/16 15:18 129/73 05/21/16 15:17 66 13 99 05/21/16 15:17 68 13 05/21/16 15:15 127/82 05/21/16 15:12 36.5 72 16 127/82 100 Mask 10 05/21/16 08:13 36.9 82 16 114/69 97 Room Air 05/21/16 07:40 Room Air Notes Mental Status: alert / awake / arousable, participated in evaluation Pt Amnestic to Procedure: Yes Nausea / Vomiting: adequately controlled Pain: adequately controlled Airway Patency, RR, SpO2: stable & adequate BP & HR: stable & adequate Hydration State: stable & adequate Anesthetic Complications: no major complications apparent
[2016-05-21] MEDS: MoRPHine SULFATE 2 MG/ML CARP IV PRN ×2 (16:51→21:22)
--- NOTE | 2016-05-21 17:39 | OPERATIVE REPORT ---
DATE OF OPERATION: 05/21/2016 PREOPERATIVE DIAGNOSIS: Septic olecranon bursitis, right knee. POSTOPERATIVE DIAGNOSIS: Same. PROCEDURE: Exploration and excision right prepatellar bursa. SURGEON: Javon Mckeon MD. STUDENT NURSE: None. ANESTHESIA: General. TOURNIQUET TIME: 29 minutes at 350 mmHg. DRAINS: Hemovac x1. CULTURES: None. COMPLICATIONS: None. DESCRIPTION OF PROCEDURE: Following satisfactory general anesthesia, the patient was supine. A tourniquet was placed. The lower extremity was prepared with ChloraPrep and draped sterilely. The tourniquet was inflated without exsanguination. Using the midline incision, the incision was deepened through the subcutaneous tissues. There was a large prepatellar bursa sac. Sharp dissection was carried around the bursa, although there was slight communication anteriorly. The entire bursa was carefully shelled out from the anterior surface of the knee, taking care not to enter the capsule. A large bursa sac was removed and handed off for specimen as well as cultures. The wound was irrigated with 3 liters of pulse lavage with antibiotic. A Hemovac drain was placed. It was felt that the entire bursa was removed; therefore no packing was used. The knee was closed with 2-0 Vicryl deep and surgical jackie. A compression dressing was applied. The tourniquet was deflated. The patient was returned to his bed in stable condition. I attest to the content of the Intraoperative Record and any orders documented therein. Any exceptio ns are noted below.
[2016-05-21] MEDS: VANCOMYCIN INJ 1,750 MG in SODIUM CHLORIDE 0.9% 500ML 500 ML IV SCH (17:51)
[2016-05-21] MEDS: ASPIRIN 325 MG ECTAB PO SCH (21:18)
[2016-05-21] MEDS: SENNA 8.6 MG TAB PO SCH (21:18)
[2016-05-21] MEDS: DOCUSATE SODIUM 100 MG CAP PO SCH (21:18)
[2016-05-21] MEDS: ACETAMINOPHEN 500 MG TAB PO SCH (21:19)
[2016-05-21] MEDS: CeleBREX 200 MG CAP PO SCH (21:19)
[2016-05-22] MEDS: PIPERACILL/TAZOBAC IV 3.375 GM in DEXTROSE 5% 100ML IV SCH ×2 (02:06→09:57)
[2016-05-22] MEDS: VANCOMYCIN INJ 1,750 MG in SODIUM CHLORIDE 0.9% 500ML 500 ML IV SCH ×3 (02:07→18:12)
[2016-05-22 04:02] VITALS: BP 112/70; PULSE 49; TEMP 36.4; O2SAT 96
[2016-05-22] MEDS: ACETAMINOPHEN 500 MG TAB PO SCH ×3 (05:40→20:47)
[2016-05-22 06:56] VITALS: BP 115/66; PULSE 49; TEMP 36.4; O2SAT 98
[2016-05-22 07:13] LABS: CREATININE 0.89 mg/dl (0.60-1.40)
--- NOTE | 2016-05-22 08:51 | Orthopedic Progress Note ---
Orthopedic Progress Note Date of Service May 22, 2016. Subjective Post OP Day: 1 Reports: feeling well, Denies: SOB, calf pain, chest pain, light headedness, nausea / vomiting Additional Notes: PATIENT FEELING SO MUCH BETTER. LESS PRESSURE AND IS ABLE TO BEAR WEIGHT Objective calves soft nontender, N/V intact, dressing C/D/I, hemovac drainage (0CC. MILD SEROUS FLUID IN TUBING) Date Time Temp Pulse Resp B/P Pulse Ox O2 Delivery O2 Flow Rate FiO2 05/22/16 06:56 36.4 49 15 115/66 98 Room Air 05/22/16 04:02 36.4 49 16 112/70 96 Room Air 05/22/16 00:15 Room Air 05/21/16 23:26 36.5 54 16 113/66 96 Room Air 05/21/16 19:48 36.8 69 16 107/64 94 Room Air 05/21/16 19:02 36.7 68 16 112/65 93 Room Air 05/21/16 17:40 36.8 66 17 101/60 95 Room Air 05/21/16 17:08 36.2 62 16 114/66 95 Room Air 05/21/16 16:40 96 Room Air 05/21/16 16:40 96 Room Air 05/21/16 16:34 124/67 05/21/16 16:30 67 15 05/21/16 16:30 65 15 93 05/21/16 16:28 124/64 05/21/16 16:25 77 16 05/21/16 16:25 79 16 93 05/21/16 16:23 126/67 05/21/16 16:20 64 18 93 05/21/16 16:20 64 18 05/21/16 16:18 119/66 05/21/16 16:15 65 16 05/21/16 16:15 66 16 94 05/21/16 16:14 125/65 05/21/16 16:10 62 16 98 05/21/16 16:10 64 16 05/21/16 16:08 133/72 05/21/16 16:05 65 13 98 05/21/16 16:05 66 13 05/21/16 16:03 131/63 05/21/16 16:00 60 13 05/21/16 16:00 60 13 98 05/21/16 15:58 121/66 05/21/16 15:55 67 14 05/21/16 15:55 65 14 98 05/21/16 15:53 130/63 05/21/16 15:50 68 16 94 05/21/16 15:50 69 16 05/21/16 15:48 125/70 05/21/16 15:45 62 8 05/21/16 15:45 61 8 98 05/21/16 15:44 36.9 122/65 05/21/16 15:42 65 16 99 05/21/16 15:42 64 05/21/16 15:38 120/65 05/21/16 15:37 64 97 05/21/16 15:37 64 16 05/21/16 15:33 122/62 05/21/16 15:32 65 15 99 05/21/16 15:32 65 15 05/21/16 15:28 130/71 05/21/16 15:27 70 15 99 05/21/16 15:27 69 15 05/21/16 15:23 127/73 05/21/16 15:22 66 12 100 05/21/16 15:22 66 12 05/21/16 15:18 129/73 05/21/16 15:17 66 13 99 05/21/16 15:17 68 13 05/21/16 15:15 127/82 05/21/16 15:12 36.5 72 16 127/82 100 Mask 10 Assessment & Plan Assessment: POD#1 SP I&D RIGHT KNEE BURSA Plan: CONT IV VANCO WAIT ON CULTURES TO DETERMINE COURSE OF TREATMENT DC DRESSING/DRAIN IN AM. Inhouse Planning Pain Management: PO Tylenol, Oxy IR Discharge Planning Discharge Planning: home
[2016-05-22] MEDS: CeleBREX 200 MG CAP PO SCH ×2 (09:48→20:45)
[2016-05-22] MEDS: MULTIVITAMIN TAB PO SCH (09:49)
[2016-05-22] MEDS: DOCUSATE SODIUM 100 MG CAP PO SCH ×2 (09:49→20:45)
[2016-05-22] MEDS: ASPIRIN 325 MG ECTAB PO SCH ×2 (09:49→20:44)
[2016-05-22] MEDS: PANTOprazole SOD 40 MG TAB PO SCH (09:49)
--- NOTE | 2016-05-22 10:13 | Anesthesiology Progress Note ---
Anesthesia Post Op Note Date & Time May 22, 2016 at 10:13 Vital Signs Pain Intensity: 0.0 Vital Signs Past 12 Hours Date Time Temp Pulse Resp B/P Pulse Ox O2 Delivery O2 Flow Rate FiO2 05/22/16 07:50 Room Air 05/22/16 06:56 36.4 49 15 115/66 98 Room Air 05/22/16 04:02 36.4 49 16 112/70 96 Room Air 05/22/16 00:15 Room Air 05/21/16 23:26 36.5 54 16 113/66 96 Room Air Notes Mental Status: alert / awake / arousable, participated in evaluation Pt Amnestic to Procedure: Yes Nausea / Vomiting: adequately controlled Pain: adequately controlled Airway Patency, RR, SpO2: stable & adequate BP & HR: stable & adequate Hydration State: stable & adequate Anesthetic Complications: no major complications apparent
[2016-05-22 15:17] VITALS: BP 123/75; PULSE 62; TEMP 36.3; O2SAT 97
--- NOTE | 2016-05-22 16:31 | Progress Note ---
Internal Med Progress Note Date of Service: May 22, 2016. Provider Documentation: SUBJECTIVE: The patient was seen and examined S/P I&D and the pain is much improved Denies any fever ,chills No CP,palpitation,SOB OBJECTIVE: Vital Signs-as noted below Exam: General-No distress at rest Eyes-normal ENT-normal Neck-supple Lungs-clear to ausucltate bilaterally Heart-Regular,no murmur Abdomen-Benign,no masses,bowel sound present Extremities-No edema Right Knee is bandaged Pain is improved Neuro-AAOx3 Lab data as noted below. ASSESSMENT & PLAN: Prepatellar Bursitis/Cellulitis for Right Knee - presenting with increasing pain, erythema, and edema to the right knee over the past 3 days; -was seen in the ER on 05/18 and given doxycycline with no improvement in his symptoms -started on IV Vanco and Zosyn in ED - blood cultures negative - ortho consult, input appreciated -S/P I&D -Staph aureus in aspirate -await sensitivity -Continue Vanco,stop Zosyn DVT PROPHYLAXIS - SCDs DISPO Awaited Vital Signs: Date Time Temp Pulse Resp B/P Pulse Ox O2 Delivery O2 Flow Rate FiO2 05/22/16 15:17 36.3 62 14 123/75 97 Room Air 05/22/16 07:50 Room Air 05/22/16 06:56 36.4 49 15 115/66 98 Room Air 05/22/16 04:02 36.4 49 16 112/70 96 Room Air 05/22/16 00:15 Room Air 05/21/16 23:26 36.5 54 16 113/66 96 Room Air 05/21/16 19:48 36.8 69 16 107/64 94 Room Air 05/21/16 19:02 36.7 68 16 112/65 93 Room Air 05/21/16 17:40 36.8 66 17 101/60 95 Room Air 05/21/16 17:08 36.2 62 16 114/66 95 Room Air 05/21/16 16:40 96 Room Air 05/21/16 16:40 96 Room Air 05/21/16 16:34 124/67 05/21/16 16:30 67 15 05/21/16 16:30 65 15 93 Lab Results: Results Past 24 Hours Test 05/22/16 06:08 Range/Units Creatinine 0.89 0.60-1.40 mg/dl Est Creatinine Clear Calc Drug Dose 148.8 ml/min Estimated GFR () 120.5 Estimated GFR (Non- 104.0
[2016-05-22] MEDS: SENNA 8.6 MG TAB PO SCH (20:46)
[2016-05-22 22:50] VITALS: BP 116/71; PULSE 60; TEMP 36.6; O2SAT 98
[2016-05-23] MEDS ORDERED: VANCOMYCIN TROUGH SCH (01:30)
[2016-05-23] MEDS: VANCOMYCIN INJ 1,750 MG in SODIUM CHLORIDE 0.9% 500ML 500 ML IV SCH ×2 (01:32→09:58)
[2016-05-23] MEDS: ACETAMINOPHEN 500 MG TAB PO SCH ×2 (06:11→15:53)
[2016-05-23 06:39] LABS: CREATININE 0.84 mg/dl (0.60-1.40)
[2016-05-23] MEDS: MULTIVITAMIN TAB PO SCH (07:37)
[2016-05-23] MEDS: DOCUSATE SODIUM 100 MG CAP PO SCH (07:38)
[2016-05-23] MEDS: CeleBREX 200 MG CAP PO SCH (07:38)
[2016-05-23] MEDS: ASPIRIN 325 MG ECTAB PO SCH (07:38)
[2016-05-23] MEDS: PANTOprazole SOD 40 MG TAB PO SCH (07:38)
--- NOTE | 2016-05-23 08:13 | Orthopedic Progress Note ---
Orthopedic Progress Note Date of Service May 23, 2016. Subjective Post OP Day: 2 Reports: feeling well, Denies: SOB, calf pain, chest pain, light headedness, nausea / vomiting Objective calves soft nontender, N/V intact, incision C/D/I, A&O x3, toes mobile Date Time Temp Pulse Resp B/P Pulse Ox O2 Delivery O2 Flow Rate FiO2 05/22/16 23:50 Room Air 05/22/16 22:50 36.6 60 16 116/71 98 Room Air 05/22/16 15:45 Room Air 05/22/16 15:17 36.3 62 14 123/75 97 Room Air Assessment & Plan Assessment: POD#2 SP I&D RIGHT KNEE BURSA Plan: CONT IV VANCO CULTURES GROWING STAPH SPECIES, SENSITIVITIES PENDING, CAN LIKELY BE DISCHARGED ON PO MED. DRESSING/DRAIN DC'D TODAY ORTHOPEDICALLY STABLE. FOLLOW UP IN 2 WEEKS FOR STAPLE REMOVAL. [phone] Inhouse Planning Pain Management: PO Tylenol, Oxy IR Discharge Planning Discharge Planning: home
--- NOTE | 2016-05-23 08:16 | Discharge Instructions ---
Discharge Instructions Admission Reason for Admission: Cellulitis Of Right Knee Discharge Discharge Diagnosis / Problem: SP I&D RIGHT KNEE BURSA Discharge Goals Goal(s): Decrease discomfort, Improve function, Increase independence Activity Recommendations Activity Limitations: per Instructions/Follow-up section Weightbearing Status: Right weightbearing (as tolerated) . Instructions / Follow-Up Instructions / Follow-Up ACTIVITY RECOMMENDATIONS: SELF CARE INSTRUCTIONS AFTER TOTAL KNEE REPLACEMENT. 2. Continue working on all exercises taught to you in the hospital. Your goals should be to increase bending of your knee to 90 degrees and beyond and to fully straighten your knee. B. You may progress at your own pace from walking with a walker or crutches to a cane; then to no assistive devices. C. Make walking a part of your daily routine. Be up as much as comfortable with rest periods throughout the day. Rest with leg elevation is very important. Use the ice wrap frequently for the first 3-4 weeks. D. There are no restrictions on activities. You may ride in a car, shop, participate in travel assistant and all social activities. F. You may shower, no tub baths until cleared by your doctor. SPECIAL CARE INSTRUCTIONS: VERY IMPORTANT TO READ AND REVIEW A. There are a few signs you need to watch for after you are home. Call [facility] if you notice any of the followin. Increased severe knee pain. Some pain is expected especially when you exercise. 2. Increased swelling in your leg or knee; pain or swelling of the calf muscle in either lower leg. 3. Any fluid drainage from the incision. 4. Shortness of breath or chest pain. B. Please call [facility] at if you have any concerns or questions about your operation or recovery. The doctor or his nurse will return your call promptly. IMPORTANT: * CALL IF INCREASED PAIN, REDNESS, DRAINAGE OR FEVER GREATER THAT 101. Standard jackie/no adhesive- Please keep incision clean and dry. You may shower. [place] should be removed in 10-14 days at the office. This appointment is likely already scheduled for you. Please call if any increased redness, drainage, or swelling. FOLLOW UP VISIT: If appointment is not already scheduled: Please call [facility] to make a follow-up appointment for 2 weeks after your surgery at . Current Hospital Diet Patient's current hospital diet: Regular Diet Discharge Diet Recommended Diet: Regular Diet Procedures Procedures Performed: Open Excision and Drainage Right Pre-Patellar Septic Bursa Pending Studies Studies pending at discharge: yes List of pending studies: wound sensitivities Medical Emergencies . Who to Call and When: Medical Emergencies: If at any time you feel your situation is an emergency, please call 911 immediately. . Non-Emergent Contact Non-Emergency issues call your: Primary Care Provider . "Provider Documentation" section prepared by Lucita Harris. VTE Core Measure Inpt VTE Proph given/why not?: Other Anticoagulation
--- NOTE | 2016-05-23 14:03 | Pharmacy Progress Note ---
Pharmacy Antibiotic Prog Note Date of Service: May 23, 2016. Subjective: The patient is currently receiving vancomycin 1750 mg iv q 8 hrs for septic knee/cellulitis infection ; s/p I&D The patient is currently on day # 4 of IV therapy. Objective: Height (Feet): 6 Height (Inches): 11.00 Weight (Kilograms): 99.300 Lab Results (24hrs): Laboratory Tests Test 05/23/16 05:10 Creatinine 0.84 mg/dl Assessment & Plan: Patient on vancomycin for cellulitis/septic prepatellar bursitis infection. Patient is s/p I&D with prelim cultures positive for staph species. BC x 2 are no growth to date. Vancomycin: * Trough level this am was therapeutic at ~18 mcg/ml (goal 15-20 mcg/ml); will continue with current regimen * Per ortho notes, patient to be discharged soon and will likely be transitioned to oral therapy pending final results from cultures * Scr remains stable at this time (CrCl >100 ml/min) Pharmacy will continue to follow and will adjust dose/frequency as necessary. Thank you
[2016-05-23] MEDS ORDERED: DICLOXACILLIN SODIUM 250 MG CAP PO ONE (14:06)
[2016-05-23] MEDS ORDERED: LCTX PO (15:26)
[2016-05-23] MEDS ORDERED: DCL250 PO (15:26)
[2016-05-23 15:30] VITALS: BP 116/71; PULSE 60; TEMP 36.6; O2SAT 98
[2016-05-23 15:45] VITALS: BP 121/79; PULSE 65; TEMP 36.8; O2SAT 96
[2016-05-23] MEDS ORDERED: DICLOXACILLIN SODIUM 250 MG CAP PO SCH (18:00)
--- NOTE | 2016-05-24 11:29 | Discharge Summary ---
Discharge Summary Admission Date: May 20, 2016 at 11:58 Discharge Date: May 23, 2016 Discharge Disposition: Home Principal Diagnosis: SP I&D RIGHT KNEE BURSA Secondary Diagnoses/Problems: Please see H&P Consultations: Orthopedic Medication Reconciliation New Medications: Lactobacillus Acidophilus (Lactinex) Tab 1 TAB PO TID for 10 Days, #30 TAB Dicloxacillin Sodium (Dicloxacillin Sodium) 250 Mg Cap 250 MG PO Q6 for 7 Days, #28 CAP Continued Medications: Ibuprofen (Advil) 200 Mg Tab 400 MG PO Q6 PRN for Pain, TAB Discontinued Medications: Doxycycline Hyclate (Vibramycin) 100 Mg Cap 100 MG PO BID for 10 Days, #19 CAP Admission Information HPI (per Admitting provider): 45 year old male who presents to the ER with increasing right knee pain, swelling, and redness. Patient was seen in the ER on 05/18 for right knee pain, redness, and swelling. Patient reports he first noticed the redness Friday evening. He reports the redness was localized to the top of the knee. He had minimal pain and edema. Patient was seen in the ER and diagnosed with cellulitis and bursitis. He was discharged on doxycycline and instructed to take NSAIDs. Patient reports edema has been increasing as well as the pain. He reports he is unable to bear weight on his RLE. He has pain with minimal movement. There is a scab noted to the right knee. Patient reports he kneels a lot and has rough skin on his knees that he picks at at times. When he woke up this morning redness started to extend up his thigh. He also has been running fevers as high as 103 despite taking Motrin around the clock. He reports nausea at times which he feels is due to the high level of pain he has been experiencing. No vomiting, diarrhea, or abdominal pain. He denies chest pain and shortness of breath. No lightheadedness, dizziness, diaphoresis, or syncopal events. In the ER, WBC is 15K. Vitals are stable and the remainder of the labs are unremarkable. Patient was given Vanco and Zosyn. Past Medical/Surgical History Surgical Problems: (1) S/P left knee arthroscopy Status: Chronic Family History Patient reports no known family medical history. negative for premature CAD, DM, or CVA Social History Smoking Status: Never Smoker Alcohol Use: occasionally Marital Status: Immunizations History of Tetanus Vaccine?: Yes Tetanus Immunization Date: August 26, 2006 Allergies Coded Allergies: No Known Allergies (Unverified , 05/18/16) Home Medications Scheduled Doxycycline Hyclate (Vibramycin), 100 MG PO BID Scheduled PRN Ibuprofen (Advil), 400 MG PO Q6 PRN for Pain Review of Systems 10 point review of systems was completed with the pertinent positives and negatives noted per the HPI Physical Ex - H&P Physical Exam Vital Signs Date Time Temp Pulse Resp B/P Pulse Ox O2 Delivery O2 Flow Rate FiO2 05/20/16 11:32 82 18 148/63 99 Room Air 05/20/16 09:46 36.6 88 18 113/74 96 Room Air General Appearance: no apparent distress Head: normocephalic Eyes: normal inspection ENT: hearing grossly normal Neck: supple, no JVD Respiratory/Chest: lungs clear, normal breath sounds, no respiratory distress Cardiovascular: regular rate, rhythm, no edema, normal peripheral pulses Abdomen/GI: normal bowel sounds, non tender, soft Extremities/Musculoskelatal: + pertinent finding (right prepatellar swelling, tender to palpation and pain with minimal movement, erythema noted over right knee extending medially, laterally, posteriorly and up the thigh, warm to touch) Neurologic/Psych: no motor/sensory deficits, alert, normal mood/affect, oriented x 3 Skin: normal color, warm/dry Diagnostics - H&P Diagnostics Laboratory Results Results Past 24 Hours Test 05/20/16 11:05 Range/Units White Blood Count 15.38 4.8-10.8 K/uL Red Blood Count 4.60 4.7-6.1 M/uL Hemoglobin 13.9 14.0-18.0 g/dL Hematocrit 41.2 42-52 % Mean Corpuscular Volume 89.6 80-100 fL Mean Corpuscular Hemoglobin 30.2 25-34 pg Mean Corpuscular Hemoglobin Concent 33.7 32-36 g/dl Platelet Count 123 130-400 K/uL Mean Platelet Volume 10.7 7.4-10.4 fL Neutrophils (%) (Auto) 87.9 % Lymphocytes (%) (Auto) 4.8 % Monocytes (%) (Auto) 6.9 % Eosinophils (%) (Auto) 0.1 % Basophils (%) (Auto) 0.1 % Neutrophils # (Auto) 13.52 1.4-6.5 K/uL Lymphocytes # (Auto) 0.74 1.2-3.4 K/uL Monocytes # (Auto) 1.06 0.11-0.59 K/uL Eosinophils # (Auto) 0.02 0-0.5 K/uL Basophils # (Auto) 0.01 0-0.2 K/uL RDW Standard Deviation 42.9 36.4-46.3 fL RDW Coefficient of Variation 13.1 11.5-14.5 % Immature Granulocyte % (Auto) 0.2 % Immature Granulocyte # (Auto) 0.03 0.00-0.02 K/uL Erythrocyte Sedimentation Rate 14 0-14 mm/hr Sodium Level 142 136-145 mmol/L Potassium Level 3.6 3.5-5.1 mmol/L Chloride Level 106 98-107 mmol/L Carbon Dioxide Level 30 21-32 mmol/L Anion Gap 6.0 3-11 mmol/L Blood Urea Nitrogen 14 7-18 mg/dl Creatinine 1.10 0.60-1.40 mg/dl Est Creatinine Clear Calc Drug Dose 120.4 ml/min Estimated GFR () 94.1 Estimated GFR (Non- 81.2 BUN/Creatinine Ratio 12.5 10-20 Random Glucose 99 70-99 mg/dl Calcium Level 9.0 8.5-10.1 mg/dl C-Reactive Protein 14.60 0-0.29 mg/dl Microbiology Results 05/20/16 Blood Culture, Received Pending 05/20/16 Blood Culture, Received Pending Impression - H&P Impression Assessment and Plan RIGHT KNEE CELLULITIS, POSSIBLE INFECTED BURSITIS - admit to med/surg - presenting with increasing pain, erythema, and edema to the right knee over the past 3 days; was seen in the ER on 05/18 and given doxycycline with no improvement in his symptoms - WBC 15k on presentation, no other SIRS criteria - prepatellar swelling noted with overlying cellulitis - knee XR pending - s/p Vanco and Zosyn in ED, will continue with - blood cultures pending - ortho consult, input appreciated DVT PROPHYLAXIS - SCDs DISPO - In my clinical judgment this beneficiary meets acute admission criteria, established by [facility], that includes being hospitalized through two midnights. Attending Note: Patient is a 45 yr old male with no significant PMH of presents with history of right knee swelling, redness, pain since Friday which has been progressively worsening and patient has been having difficulty with ambulation. Reports associated fever. Patient denies any discharge, trauma, insect bite. Patient has an elevated white count and X ray of the knee is suggestive of prepatellar bursitis. Physical Exam: Vitals signs as noted above General Appearance:Moderately built and nourished, no apparent distress Head: normocephalic, Atraumatic Eyes: normal inspection, EOMI, PERRLA, Anicteric Neck: supple, no JVD, Trachea midline Respiratory/Chest: Normal Vesicular breath sounds, CTA, No accessory muscle use Cardiovascular: S1, S2, NSR, No murmur Abdomen/GI:Soft, Non tender, Bowel sounds present, No guarding/rigidity/ organomegaly Extremities/Musculoskelatal: Right knee is erythematous, swollen, tender and has decreased ROM Neurologic/Psych:AAOX3, grossly no focal neurological deficits Skin:normal color,warm Assessment and Plan: Right knee cellulitis/prepatellar bursitis: Check blood cultures/lactate levels IV antibiotics Pain control Ortho consulted Consider IV fluids if lactate levels elevated I personally reviewed the record. Patient is interviewed and examined at bedside. Patient's care is coordinated with Marta Elias THREADING MACHINE OPERATOR. Please refer to the documentation above for details of patient's presentation and for discussion of other issues. VTE Prophylaxis VTE Risk Assessment Done? Y/N: Yes Risk Level: Low Physical Exam (per Admitting): General Appearance: no apparent distress Head: normocephalic Eyes: normal inspection ENT: hearing grossly normal Neck: supple, no JVD Respiratory/Chest: lungs clear, normal breath sounds, no respiratory distress Cardiovascular: regular rate, rhythm, no edema, normal peripheral pulses Abdomen/GI: normal bowel sounds, non tender, soft Extremities/Musculoskelatal: + pertinent finding (right prepatellar swelling , tender to palpation and pain with minimal movement, erythema noted over right knee extending medially, laterally, posteriorly and up the thigh, warm to touch) Neurologic/Psych: no motor/sensory deficits, alert, normal mood/affect, oriented x 3 Skin: normal color, warm/dry Hospital Course Prepatellar Bursitis/Cellulitis for Right Knee - presenting with increasing pain, erythema, and edema to the right knee over the past 3 days; -was seen in the ER on 05/18 and given doxycycline with no improvement in his symptoms -started on IV Vanco and Zosyn in ED - blood cultures negative - ortho consult, input appreciated -S/P I&D -Staph aureus in aspirate -await sensitivity -Continue Vanco,stop Zosyn DVT PROPHYLAXIS - SCDs DISPO Awaited Total time spent on discharge = 35 minutes This includes examination of the patient, discharge planning, medication reconciliation, and communication with other providers. Discharge Instructions Reason for Admission: Cellulitis Of Right Knee Discharge Discharge Diagnosis / Problem: SP I&D RIGHT KNEE BURSA Discharge Goals Goal(s): Decrease discomfort, Improve function, Increase independence Activity Recommendations Activity Limitations: per Instructions/Follow-up section Weightbearing Status: Right weightbearing (as tolerated) . Instructions / Follow-Up Instructions / Follow-Up ACTIVITY RECOMMENDATIONS: SELF CARE INSTRUCTIONS AFTER TOTAL KNEE REPLACEMENT. 2. Continue working on all exercises taught to you in the hospital. Your goals should be to increase bending of your knee to 90 degrees and beyond and to fully straighten your knee. B. You may progress at your own pace from walking with a walker or crutches to a cane; then to no assistive devices. C. Make walking a part of your daily routine. Be up as much as comfortable with rest periods throughout the day. Rest with leg elevation is very important. Use the ice wrap frequently for the first 3-4 weeks. D. There are no restrictions on activities. You may ride in a car, shop, participate in technical manager [employer] plant and all social activities. F. You may shower, no tub baths until cleared by your doctor. SPECIAL CARE INSTRUCTIONS: VERY IMPORTANT TO READ AND REVIEW A. There are a few signs you need to watch for after you are home. Call [facility] if you notice any of the followin. Increased severe knee pain. Some pain is expected especially when you exercise. 2. Increased swelling in your leg or knee; pain or swelling of the calf muscle in either lower leg. 3. Any fluid drainage from the incision. 4. Shortness of breath or chest pain. B. Please call [facility] at if you have any concerns or questions about your operation or recovery. The doctor or his nurse will return your call promptly. IMPORTANT: * CALL IF INCREASED PAIN, REDNESS, DRAINAGE OR FEVER GREATER THAT 101. Standard jackie/no adhesive- Please keep incision clean and dry. You may shower. Breeden should be removed in 10-14 days at the office. This appointment is likely already scheduled for you. Please call if any increased redness, drainage, or swelling. FOLLOW UP VISIT: If appointment is not already scheduled: Please call [facility] [place] to make a follow-up appointment for 2 weeks after your surgery at . Current Hospital Diet Patient's current hospital diet: Regular Diet Discharge Diet Recommended Diet: Regular Diet Procedures Procedures Performed: Open Excision and Drainage Right Pre-Patellar Septic Bursa Pending Studies Studies pending at discharge: yes List of pending studies: wound sensitivities Medical Emergencies . Who to Call and When: Medical Emergencies: If at any time you feel your situation is an emergency, please call 911 immediately. . Non-Emergent Contact Non-Emergency issues call your: Primary Care Provider . "Provider Documentation" section prepared by Lucita Harris. VTE Core Measure Inpt VTE Proph given/why not?: Other Anticoagulation <Electronically signed by Lucita Harris PRasheedA.> <Electronically signed by Dale Kothari M.D.> Signed: 05/23/16 0816 Signed: 05/23/16 0817 The status of this report is Signed * If report status is Draft, the document has not been finalized by the responsible provider. Addendum: 05/23/16 1527 Addendum: Neda Ramsey M.D. on 05/23/16 @ 15:27 Discharge Inst - Addendum Addendum Notes: Your PCP's office will call with appointment in 7 days Addendum Provider: Addendum Notes were documented by provider Neda Ramsey. (Neda Ramsey M.D.) Additional Copies To Kirstin Burch D.O.
== END 2016-05-23 16:30 | disposition home or self-care (01) | DRG 603 ==
LOC: ENRESERVDT → ENRESERVTM → C.EDB 09:43 → C.MSN 11:58
PROVIDERS: ADMIT Internal Medicine; ATTEND Internal Medicine
PROC: 0MB Bursae and Ligaments, Excision (ICD-10-PCS; principal; 2016-05-21 13:30)
DX: L03.115 Cellulitis of right lower limb (principal); M71.161 Other infective bursitis, right knee; B95.61 Methicillin susceptible Staphylococcus aureus infection as the cause of diseases classified elsewhere

== ENCOUNTER 2020-10-17 08:03 | Inpatient (IN) ==
[2020-10-17] MEDS ORDERED: cefTRIAXone SODIUM 2,000 MG/70 ML BAG IV STA (08:32)
--- NOTE | 2020-10-17 08:38 | Emergency Department Note ---
History of Present Illness General Chief complaint: Infection Stated complaint: INFECTION IN LEFT FOOT Time Seen by Provider: 10/17/20 08:18 History of Present Illness Maximum Pain Intensity: 8 This is a 50-year-old male who presents to the emergency department via private vehicle with complaints of "infection left foot". The patient notes that this past Friday he was in [place] at a basketball tournament. He states that he had new shoes at the time. He states that he began with some discomfort between the toes of the left foot. He remove the shoe and this seemed to impro ve somewhat but then worsened. He then notes that he developed skin discoloration between the toes of the left foot therefore prompting [facility]:30 [facility] on this past Friday. He started on p.o. Bactrim. He has been taking this as prescribed. The patient denies any known trauma or injury. The area was outlined. He also to follow-up yesterday with PCP. He points to the space tween the second and third toes as a location of now a dark discoloration and redness that he notes progresses towards the left ankle. He does have pictures to document progression and states that initially it looked improved yesterday but now this morning seems to be worsening. He denies any other history of injury or infection to this foot. He does note a history of right knee infection that was surgically washed out previously. No other pertinent past medical history, surgeries or allergies. He feels chilled and somewhat nauseous but no fevers or vomiting. Home Medications Medication Instructions Recorded Confirmed Type ibuprofen 200 mg PO Q6H PRN 10/17/20 10/17/20 History sulfamethoxazole-trimethoprim 1 tab PO BID 10/17/20 10/17/20 History [Bactrim DS] Allergies Allergy/AdvReac Type Severity Reaction Status Date / Time No Known Allergies Allergy Verified 10/17/20 09:15 Past Med/Surg History Medical History No pertinent past medical history Surgical History H/O knee surgery Family History Denies family history of Ovarian cancer Prostate cancer Myocardial infarction Breast cancer Colorectal cancer Social History Smoking Status: Never smoker Hx Alcohol Use: Yes Alcohol type: beer Alcohol Intake Frequency: Monthly or Less Hx Substance Use: No Preferred Language: Italian Communication Ability: Effective marital status: Current Living Situation: Spouse and Family current occupational status: employed 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 Feels Safe at Home: Yes Childhood Exposure to Second-Hand Smoke: Yes Dental Care, Regularly: Yes Physical Activity Frequency: Daily Seatbelt Use: always Sunscreen Use: Yes Review of Systems A total of 10 systems reviewed and were otherwise negative Physical Exam Vital Signs Vital Signs - 24 hr 10/17/20 08:08 10/17/20 10:34 10/17/20 10:51 Temperature 36.4 C L Temperature Source Oral Pulse Rate 91 H Pulse Rate [Finger] 60 Respiratory Rate 16 16 Respiratory Effort / Characteristics Non-Labored Spontaneous Respiratory Depth Normal Respiratory Pattern Regular Blood Pressure 108/67 Blood Pressure [Right Arm] 122/68 Blood Pressure Mean 80 Blood Pressure Mean [Right Arm] 86 Pulse Oximetry 96 96 Oxygen Delivery Method Room Air Room Air Room Air Sepsis Recent Fever Within 48 Hours No Sepsis New/Unexplained Change in Mental Status N/A Sepsis Action Taken by Nursing No Action Required VITAL SIGNS - Vital signs and nursing notes were reviewed. Stable and afebrile. GENERAL -50-year-old male appearing his stated age who is in no acute distress. Communicates well with provider and answers questions appropriately. SKIN -there is an area of darkened grayish/blackish tissue in between the second and third toes of the left foot with associated erythema tracking towards the left ankle overlying the dorsum of the left foot. There is edema noted between the second and third toe. No drainage at this time. HEAD - NC/AT. NECK - Neck with FROM. No nuchal rigidity. LUNGS - Chest wall symmetric without accessory muscle use, intercostals retractions, or central cyanosis. Normal vesicular breath sounds CTA B/L. No wheezes, rales, or rhonchi appreciated. CARDIAC - RRR with S1/S2. No murmur, rubs, or gallops appreciated. EXTREMITIES - No clubbing or peripheral cyanosis. Skin as above. There is decreased range of motion of the toes of the left foot secondary to pain and edema. No crepitus. He is neurovascularly intact in the left lower extremity. +5/5 strength noted in UE/LE bilaterally. NEUROLOGIC - Cranial nerves II through XII grossly intact. PSYCH - A&O, and cooperates fully with examiner. Pt is very pleasant and interacts well with examiner. Course Administered Medications Discontinued Medications Ceftriaxone Sodium (Rocephin) 2,000 mg in 70 mls @ 140 mls/hr IV NOW STA Stop: 10/17/20 09:01 Last Infusion: 10/17/20 10:36 Dose: 0 mls/hr Documented by: [id number] Admin: 10/17/20 09:19 Dose: 140 mls/hr Documented by: [id number] Medical Decision Making Laboratory Data Result diagrams: 10/17/20 08:47 10/17/20 08:47 Lab Results 10/17/20 10/17/20 10/17/20 Range/Units 08:47 08:47 08:47 WBC 5.01 (4.8-10.8) K/uL RBC 4.51 L (4.7-6.1) M/uL Hgb 13.8 L (14.0-18.0) g/dL Hct 40.6 L (42-52) % MCV 90.0 (80-100) fL MCH 30.6 (25-34) pg MCHC 34.0 (32-36) g/dL RDW Std Deviation 42.1 (36.4-46.3) fL RDW Coeff of Damaris 12.7 (11.5-14.5) % Plt Count 136 (130-400) K/uL MPV 10.3 (7.4-10.4) fL Immature Gran % (Auto) 0.2 % Neut % (Auto) 78.0 % Lymph % (Auto) 10.8 % [place] % (Auto) 10.0 % Eos % (Auto) 0.8 % Baso % (Auto) 0.2 % Neut # (Auto) 3.91 (1.4-6.5) K/uL Lymph # (Auto) 0.54 L (1.2-3.4) K/uL [place] # (Auto) 0.50 (0.11-0.59) K/uL Eos # (Auto) 0.04 (0-0.5) K/uL Baso # (Auto) 0.01 (0-0.2) K/uL Immature Gran # (Auto) 0.01 (0.00-0.02) K/uL ESR 11 (0-15) mm/hr Sodium 137 (136-145) mmol/L Potassium 3.9 (3.5-5.1) mmol/L Chloride 106 (98-107) mmol/L Carbon Dioxide 26 (21-32) mmol/L Anion Gap 4.0 (3-11) BUN 12 (7-18) mg/dl Creatinine 1.18 (0.6-1.4) mg/dl Est Cr Clr Drug Dosing Not Reportable Est GFR ( Amer) 83.5 ml/min Est GFR (Non-Af Amer) 72.0 ml/min BUN/Creatinine Ratio 10.1 (10-20) Glucose 122 H (70-99) mg/dl Lactate (0.4-2.0) mmol/L Calcium 9.0 (8.5-10.1) mg/dl Total Bilirubin 0.5 (0.2-1) mg/dl AST 13 L (15-37) U/L ALT 21 (12-78) U/L Alkaline Phosphatase 68 (45-117) U/L C-Reactive Protein 3.19 H (0-0.29) mg/dl Total Protein 6.9 (6.4-8.2) gm/dl Albumin 3.7 (3.4-5.0) gm/dl Globulin 3.1 (2.5-4.0) gm/dl Albumin/Globulin Ratio 1.2 (0.9-2) Procalcitonin (0-0.5) ng/ml COVID-19 Eval Order SARS-CoV-2 (PCR) (Negative) 10/17/20 10/17/20 10/17/20 Range/Units 08:47 08:47 09:13 WBC (4.8-10.8) K/uL RBC (4.7-6.1) M/uL Hgb (14.0-18.0) g/dL Hct (42-52) % MCV (80-100) fL MCH (25-34) pg MCHC (32-36) g/dL RDW Std Deviation (36.4-46.3) fL RDW Coeff of Damaris (11.5-14.5) % Plt Count (130-400) K/uL MPV (7.4-10.4) fL Immature Gran % (Auto) % Neut % (Auto) % Lymph % (Auto) % [place] % (Auto) % Eos % (Auto) % Baso % (Auto) % Neut # (Auto) (1.4-6.5) K/uL Lymph # (Auto) (1.2-3.4) K/uL [place] # (Auto) (0.11-0.59) K/uL Eos # (Auto) (0-0.5) K/uL Baso # (Auto) (0-0.2) K/uL Immature Gran # (Auto) (0.00-0.02) K/uL ESR (0-15) mm/hr Sodium (136-145) mmol/L Potassium (3.5-5.1) mmol/L Chloride (98-107) mmol/L Carbon Dioxide (21-32) mmol/L Anion Gap (3-11) BUN (7-18) mg/dl Creatinine (0.6-1.4) mg/dl Est Cr Clr Drug Dosing Est GFR ( Amer) ml/min Est GFR (Non-Af Amer) ml/min BUN/Creatinine Ratio (10-20) Glucose (70-99) mg/dl Lactate 1.2 (0.4-2.0) mmol/L Calcium (8.5-10.1) mg/dl Total Bilirubin (0.2-1) mg/dl AST (15-37) U/L ALT (12-78) U/L Alkaline Phosphatase (45-117) U/L C-Reactive Protein (0-0.29) mg/dl Total Protein (6.4-8.2) gm/dl Albumin (3.4-5.0) gm/dl Globulin (2.5-4.0) gm/dl Albumin/Globulin Ratio (0.9-2) Procalcitonin < 0.05 (0-0.5) ng/ml COVID-19 Eval Order Covid19 at [facility] SARS-CoV-2 (PCR) (Negative) 10/17/20 Range/Units 09:13 WBC (4.8-10.8) K/uL RBC (4.7-6.1) M/uL Hgb (14.0-18.0) g/dL Hct (42-52) % MCV (80-100) fL MCH (25-34) pg MCHC (32-36) g/dL RDW Std Deviation (36.4-46.3) fL RDW Coeff of Damaris (11.5-14.5) % Plt Count (130-400) K/uL MPV (7.4-10.4) fL Immature Gran % (Auto) % Neut % (Auto) % Lymph % (Auto) % [place] % (Auto) % Eos % (Auto) % Baso % (Auto) % Neut # (Auto) (1.4-6.5) K/uL Lymph # (Auto) (1.2-3.4) K/uL [place] # (Auto) (0.11-0.59) K/uL Eos # (Auto) (0-0.5) K/uL Baso # (Auto) (0-0.2) K/uL Immature Gran # (Auto) (0.00-0.02) K/uL ESR (0-15) mm/hr Sodium (136-145) mmol/L Potassium (3.5-5.1) mmol/L Chloride (98-107) mmol/L Carbon Dioxide (21-32) mmol/L Anion Gap (3-11) BUN (7-18) mg/dl Creatinine (0.6-1.4) mg/dl Est Cr Clr Drug Dosing Est GFR ( Amer) ml/min Est GFR (Non-Af Amer) ml/min BUN/Creatinine Ratio (10-20) Glucose (70-99) mg/dl Lactate (0.4-2.0) mmol/L Calcium (8.5-10.1) mg/dl Total Bilirubin (0.2-1) mg/dl AST (15-37) U/L ALT (12-78) U/L Alkaline Phosphatase (45-117) U/L C-Reactive Protein (0-0.29) mg/dl Total Protein (6.4-8.2) gm/dl Albumin (3.4-5.0) gm/dl Globulin (2.5-4.0) gm/dl Albumin/Globulin Ratio (0.9-2) Procalcitonin (0-0.5) ng/ml COVID-19 Eval Order SARS-CoV-2 (PCR) NEGATIVE (Negative) Imaging Data Radiologist's Impression: Foot X-Ray 10/17/20 08:33 LEFT FOOT 3 VIEWS CLINICAL HISTORY: Left foot infection. FINDINGS: 3 views of the left foot are obtained No prior studies are available for comparison at the time of dictation. The skeletal structures are well mineralized. No fracture is seen. There is no bony erosion or periostitis. The joint spaces of the foot are maintained. Mild spurring is seen along the dorsal aspect of the tarsal bones. Mild soft tissue edema is suggested overlying the fifth metatarsophalangeal joint. No subcutaneous gas or radiodense foreign body is identified. IMPRESSION: 1. No acute bony abnormality is identified. 2. Soft tissue swelling is suggested overlying the fifth metatarsophalangeal flavia nt. Clinical correlation will be required. Electronically signed by: Ricci Schmidt M.D. 10/17/2020 8:57 AM MDM Narrative Patient was seen and evaluated as above in room C08. Review was performed of nursing notes and vital signs. I did review pertinent previous visits and patient history. After obtaining a thorough history and physical examination the above work up was performed. Patient presents to us today with erythema and skin discoloration to the left foot. There does appear to be an area of potential necrosis between the second and third MTP joint on the dorsum of the foot measuring about a centimeter in diameter. The patient did provide a photo documentation of the timeline of events since the erythema and edema began. Options of care were discussed with the patient. IV access established. Labs were drawn. He was given IV Rocephin. No leukocytosis. Mild anemia noted with hemoglobin of 13.8. No emergent metabolic disturbance. There is CRP elevation at 3.19. Pro-Cristobal normal. Covid testing negative. X-ray was obtained and was negative for foreign body. Given the patient's worsening symptoms despite current course of p.o. antibiotics for almost 2 days now I do believe that further evaluation and management inpatient setting is warranted. Case discussed with the hospitalist. I also spoke to Dr. Mejía of orthopedics regarding this. Patient will be evaluated here in the hospital today by orthopedics. An ultrasound of the left lower extremity to assess arterial flow was recommended. Please refer to further documentation regarding his stay. GCS: 15 In the evaluation and treatment of this patient the following differential diagnoses were entertained: Cellulitis, necrotic infection, arterial compromise, trauma, injury, fracture, dislocation, subluxation, contusion, among others. Impression & Plan Cellulitis of foot, left Discharge Plan Visit Data Chief Complaint: Infection Stated Complaint: INFECTION IN LEFT FOOT ED Provider: Duncan Pizano ED Midlevel Provider: Toño Galeano Discharge Problem: Cellulitis of foot, left Patient Disposition: Admitted As Inpatient Condition: Good Discharge Instructions Interventions: ED Discharge Assessment Last Done: 10/17/20 10:51 Forms Stand Alone Forms: [facility], Virtual Emergency Department, Important Visit Information Prescriptions Prescriptions: No Action sulfamethoxazole-trimethoprim [Bactrim DS] 800-160 mg tablet 1 tab PO BID RF: 0 ibuprofen 200 mg Tablet 200 mg PO Q6H PRN (Reason: Pain) RF: 0 Referrals Referrals: Mundo Mcclure DO [Primary Care Provider] -
--- NOTE | 2020-10-17 08:59 | XRay Report ---
LEFT FOOT 3 VIEWS CLINICAL HISTORY: Left foot infection. FINDINGS: 3 views of the left foot are obtained No prior studies are available for comparison at the time of dictation. The skeletal structures are well mineralized. No fracture is seen. There is no bon y erosion or periostitis. The joint spaces of the foot are maintained. Mild spurring is seen along th e dorsal aspect of the tarsal bones. Mild soft tissue edema is suggested overlying the fifth metatars ophalangeal joint. No subcutaneous gas or radiodense foreign body is identified. IMPRESSION: 1. No acute bony abnormality is identified. 2. Soft tissue swelling is suggested overlying the fifth metatarsophalangeal joint. Clinical correlat ion will be required. Electronically signed by: Ricci Schmidt M.D. 10/17/2020 8:57 AM
[2020-10-17 09:04] LABS: Basophils # (auto) 0.01 K/uL (0-0.2); Basophils % (auto) 0.2 %; Eosinophils # (auto) 0.04 K/uL (0-0.5); Eosinophils % (auto) 0.8 %; Hematocrit (blood only) 40.6 % (42-52); Hemoglobin 13.8 g/dL (14.0-18.0); Immature Granulocytes # (auto) 0.01 K/uL (0.00-0.02); Immature Granulocytes % (auto) 0.2 %; Lymphocytes # (auto) 0.54 K/uL (1.2-3.4); Lymphocytes % (auto) 10.8 %; Mean Corpuscular Hemoglobin 30.6 pg (25-34); Mean Platelet Volume 10.3 fL (7.4-10.4); Neutrophils # (auto) 3.91 K/uL (1.4-6.5); Platelet Count 136 K/uL (130-400); RDW Coefficient of Variation 12.7 % (11.5-14.5); RDW Standard Deviation 42.1 fL (36.4-46.3); Red Blood Count 4.51 M/uL (4.7-6.1); White Blood Count 5.01 K/uL (4.8-10.8)
[2020-10-17 09:19] LABS: Alanine Aminotransferase 21 U/L (12-78); Albumin Level 3.7 gm/dl (3.4-5.0); Aspartate Aminotransferase 13 U/L (15-37); BUN Creatinine Ratio 10.1 (10-20); Blood Urea Nitrogen 12 mg/dl (7-18); C Reactive Protein 3.19 mg/dl (0-0.29); Carbon Dioxide 26 mmol/L (21-32); Chloride 106 mmol/L (98-107); Est GFR (African American) 83.5 ml/min; Glucose 122 mg/dl (70-99); Potassium 3.9 mmol/L (3.5-5.1); Sodium 137 mmol/L (136-145)
[2020-10-17 09:22] LABS: Albumin Globulin Ratio 1.2 (0.9-2); Alkaline Phosphatase 68 U/L (45-117); Bilirubin,Total 0.5 mg/dl (0.2-1); Globulin 3.1 gm/dl (2.5-4.0); Total Protein 6.9 gm/dl (6.4-8.2)
--- NOTE | 2020-10-17 10:31 | History & Physical Report ---
Date of Service October 17, 2020 Assessment & Plan (1) Cellulitis of foot, left: (2) Skin necrosis: Mr. Jin is a 50-year-old male without chronic medical conditions who presents acutely to [facility] ER today with a Left Foot Cellulitis and Interdigital Necrosis between the Left 2nd and 3rd Toes. His complaints include pain, swelling, and redness of his left foot, a necrotic appearing interdigital space between the left 2nd and 3rd toes, and he had fevers and chills last evening. Patient was in [place] this past weekend for a basketball tournament with his son and he was wearing a new pair of shoes, and felt some rubbing in various places, although not in the interdigital space or the primary focus of his problem. He had a small scab on his left 3rd toe pre-existing that he thinks he got when his son stepped on his foot within the past week. Patient awoke on the morning of 10/15/2020 and had pain, swelling, and erythema of his left foot which was made worse by walking on it. He does get a pins and needle sensation in this area as well and his toes feel stiff. Patient sought medical attention at [facility] on the evening of 10/15/2020, and he was started on Bactrim DS. He thought this may initially be helping, but yesterday the erythema and redness spread further up his left foot. He met with his PCP on 10/16/2020 -- and Bactrim DS was continued. Last evening he developed fever and chills stating that he could not get warm. He also felt feverish this morning but did not take his temperature at any time. Again, today when he looked at his foot the erythema had spread even further up onto his anterior left ankle, and he developed a very dark area between his left 2nd and 3rd toes. He has not had any drainage from any of these areas. He denies any headache, stiff neck, malaise, or arthralgias. Other than these scab he has on his left 3rd toe, he has not had any penetrating injuries to his foot at any time. In the ER his CRP is elevated at 3.19 mg/dl. Procalcitonin and Lactate levels are pending. CBC with diff shows a mild anemia but his WBC is within normal limits. Blood cultures x 2 have been drawn. Patient received IV Rocephin 2 grams in the ER. X-ray of his left shows soft tissue edema but No evidence of gas bubbles, foreign objects, or juan-ostial disruption. Recommend the followin. Admit to Med-Surg floor. 2. Monitor daily labs including CBC with diff, BMP, and inflammatory markers. 3. Await BCx results. 4. Orthopedic Surgery consult due to concern for necrotizing process -- Dr. Mejía/[facility] aware. 5. IV Zosyn 3.375 g every 8 hours. 6. IV Clindamycin 900 mg every 8 hours. 7. Tylenol, Tramadol, and Oxycodone have been ordered for pain control. 8. LE Arterial Ultrasound to rule out arterial supply compromise as requested by Ortho. History of Present Illness Chief Complaint: -- Interdigital Necrosis between Left 2nd and 3rd Toes. -- Left Foot Cellulitis. Primary Care Provider: Mundo Mcclure DO Mr. Jin is a 50-year-old male without chronic medical conditions who presents acutely to [facility] ER today complaining of pain, swelling, and redness of his left foot, a necrotic appearing interdigital space between the left 2nd and 3rd toes, and he had fevers and chills last evening. Patient was in [place] this past weekend for a basketball tournament with his son and he was wearing a new pair of shoes, and felt some rubbing in various places, although not in the interdigital space or the primary focus of his problem is. He had a small scab on his left 3rd toe pre-existing that he thinks he got when his son stepped on his foot within the past week. Patient awoke on the morning of 10/15/2020 and had pain, swelling, and erythema of his left foot which was made worse by walking on it. He does get a pins and needle sensation in this area as well and his toes feel stiff. Patient sought medical attention at [facility] on the evening of 10/15/2020, and he was started on Bactrim DS. He thought this may initially be helping, but yesterday the erythema and redness spread up dorsum of his foot. He met with his PCP on 10/16/2020 -- and Bactrim DS was continued. Last evening he developed fever and chills stating that he could not get warm. He also felt feverish this morning but did not take his temperature at any time. Again, today when he looked at his foot the erythema had spread even further up to his anterior left ankle, and he developed a very dark area between his left 2nd and 3rd toes. He has not had any drainage from any of these areas. He denies any headache, stiff neck, malaise, or arthralgias. Other than these scab he has on his left 3rd toe, he has not had any penetrating injuries to his foot at any time. His past medical history includes a septic right infrapatellar bursitis which required surgical intervention, washouts. Patient does not have any history of MRSA or any other resistant organisms to his knowledge. Allergies Allergy/AdvReac Type Severity Reaction Status Date / Time No Known Allergies Allergy Verified 10/17/20 09:15 Home Medications Medication Instructions Recorded Confirmed Type ibuprofen 200 mg PO Q6H PRN 10/17/20 10/17/20 History sulfamethoxazole-trimethoprim 1 tab PO BID 10/17/20 10/17/20 History [Bactrim DS] Past Med/Surg History Medical History No pertinent past medical history Surgical History H/O knee surgery Family History Denies family history of Ovarian cancer Prostate cancer Myocardial infarction Breast cancer Colorectal cancer Social History Smoking Status: Never smoker Hx Alcohol Use: Yes Alcohol type: beer Alcohol Intake Frequency: Monthly or Less Hx Substance Use: No Preferred Language: Palestinian Communication Ability: Effective [employer] Attendant Required: No Beliefs That Will Affect Care: None marital status: Current Living Situation: Spouse and Family current occupational status: employed 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 HEENT: Head is atraumatic, normocephalic. EOM's intact. Facies symmetric. No perioral cyanosis. NECK: No JVD. JVP is at the level of the clavicle sitting upright. Carotid upstrokes are + 2 bilaterally. No bruits are noted. CHEST/LUNGS: Clear to auscultation throughout all lung henao. No wheezes, rales, or crackles. CVS: S1 and S2 are regular without murmurs, gallops, or rubs. PMI is nondisplaced. No lifts, heaves, or thrills. No abdominal aortic or renal bruits. ABDOMINAL EXAM: Bowel sounds are present. No masses, organomegaly, or tenderness. EXTREMITIES: No clubbing or cyanosis. No edema. Intact posterior tibial, dorsalis pedis, and radial pulses bilaterally. NEUROLOGIC EXAM: Patient is awake, alert, and oriented. Pleasant and cooperative. Answers questions appropriately. Speech is clear. Normal movement in all 4 extremities. Gait pattern is unremarkable. DERMATOLOGIC EXAM: Examination of his left foot reveals a necrotic appearing area between his left 2nd and 3rd toes, eschar is present on his left 3rd toe over the PIP joint. There is erythema, warmth, tenderness, and edema involving left foot extending up on to his left anterior ankle. Erythema has been outlined with a marker. Results & Data Results & Data ([facility]) Vital Signs (Past 12 Hours) Vital Signs Temp Pulse Resp BP Pulse Ox 10/17/20 08:08 36.4 C L 91 H 16 108/67 96 Laboratory Results Laboratory Results - last 24 hr 10/17/20 10/17/20 10/17/20 08:47 08:47 08:47 WBC 5.01 RBC 4.51 L Hgb 13.8 L Hct 40.6 L MCV 90.0 MCH 30.6 MCHC 34.0 RDW Std Deviation 42.1 RDW Coeff of Damaris 12.7 Plt Count 136 MPV 10.3 Immature Gran % (Auto) 0.2 Neut % (Auto) 78.0 Lymph % (Auto) 10.8 Madison % (Auto) 10.0 Eos % (Auto) 0.8 Baso % (Auto) 0.2 Neut # (Auto) 3.91 Lymph # (Auto) 0.54 L Madison # (Auto) 0.50 Eos # (Auto) 0.04 Baso # (Auto) 0.01 Immature Gran # (Auto) 0.01 ESR 11 Sodium 137 Potassium 3.9 Chloride 106 Carbon Dioxide 26 Anion Gap 4.0 BUN 12 Creatinine 1.18 Est Cr Clr Drug Dosing Not Reportable Est GFR ( Amer) 83.5 Est GFR (Non-Af Amer) 72.0 BUN/Creatinine Ratio 10.1 Glucose 122 H Lactate Calcium 9.0 Total Bilirubin 0.5 AST 13 L ALT 21 Alkaline Phosphatase 68 C-Reactive Protein 3.19 H Total Protein 6.9 Albumin 3.7 Globulin 3.1 Albumin/Globulin Ratio 1.2 Procalcitonin COVID-19 Eval Order SARS-CoV-2 (PCR) 10/17/20 10/17/20 10/17/20 08:47 08:47 09:13 WBC RBC Hgb Hct MCV MCH MCHC RDW Std Deviation RDW Coeff of Damaris Plt Count MPV Immature Gran % (Auto) Neut % (Auto) Lymph % (Auto) Madison % (Auto) Eos % (Auto) Baso % (Auto) Neut # (Auto) Lymph # (Auto) Madison # (Auto) Eos # (Auto) Baso # (Auto) Immature Gran # (Auto) ESR Sodium Potassium Chloride Carbon Dioxide Anion Gap BUN Creatinine Est Cr Clr Drug Dosing Est GFR ( Amer) Est GFR (Non-Af Amer) BUN/Creatinine Ratio Glucose Lactate 1.2 Calcium Total Bilirubin AST ALT Alkaline Phosphatase C-Reactive Protein Total Protein Albumin Globulin Albumin/Globulin Ratio Procalcitonin < 0.05 COVID-19 Eval Order Covid19 at [facility] SARS-CoV-2 (PCR) 10/17/20 09:13 WBC RBC Hgb Hct MCV MCH MCHC RDW Std Deviation RDW Coeff of Damaris Plt Count MPV Immature Gran % (Auto) Neut % (Auto) Lymph % (Auto) Madison % (Auto) Eos % (Auto) Baso % (Auto) Neut # (Auto) Lymph # (Auto) Madison # (Auto) Eos # (Auto) Baso # (Auto) Immature Gran # (Auto) ESR Sodium Potassium Chloride Carbon Dioxide Anion Gap BUN Creatinine Est Cr Clr Drug Dosing Est GFR ( Amer) Est GFR (Non-Af Amer) BUN/Creatinine Ratio Glucose Lactate Calcium Total Bilirubin AST ALT Alkaline Phosphatase C-Reactive Protein Total Protein Albumin Globulin Albumin/Globulin Ratio Procalcitonin COVID-19 Eval Order SARS-CoV-2 (PCR) NEGATIVE Diagnostic Findings LEFT FOOT X-RAY 10/17/20: -- 3 views of the left foot are obtained. -- No prior studies are available for comparison at the time of dictation. -- The skeletal structures are well mineralized. No fracture is seen. There is no bony erosion or periostitis. The joint spaces of the foot are maintained. -- Mild spurring is seen along the dorsal aspect of the tarsal bones. -- Mild soft tissue edema is suggested overlying the fifth metatarsophalangeal joint. -- No subcutaneous gas or radiodense foreign body is identified. IMPRESSION: 1. No acute bony abnormality is identified. 2. Soft tissue swelling is suggested overlying the fifth metatarsophalangeal joint. 3. Clinical correlation will be required. LE ARTERIAL DOPPLER is pending. Medications Administered Medications ibuprofen 200 mg PO Q6H PRN 10/17/20 [History Confirmed 10/17/20] sulfamethoxazole-trimethoprim [Bactrim DS] 1 tab PO BID 10/17/20 [History Confirmed 10/17/20] Code Status & VTE Plan Code Status Full Code VTE Prophylaxis Plan VTE Prophylaxis will be ordered: Yes Supervising Physician Co-Signing Physician Notes Reviewed PA-Jitendra note, reviewed discussed with him briefly. Patient here for cellulitis after traumatic injury. Patient is now on broad-spectrum antibiotics, orthopedics to see. Continue pain control as noted. PG Care Time/CCT Total # of Minutes Spent Total Time Spent with Patient: Total time spent is greater than 50% in coordination of care (as documented) at patient's floor/unit and/or counseling patient:40 Coding Level of Care Code 44476 OBS Care - Level 3 Diagnoses Cellulitis of foot, left L03.116 Skin necrosis I96 Time Spent (min) 55
[2020-10-17] MEDS ORDERED: MEROPENEM CONSULT ACITVE PRN (10:50)
[2020-10-17] MEDS ORDERED: ALUMINUM/MAGNESIUM SUSP 30 ML UDC PO PRN (12:25)
[2020-10-17] MEDS ORDERED: ONDANSETRON INJ 2 MG/ML 2 ML VIAL IV PRN (12:25)
[2020-10-17] MEDS ORDERED: MAGNESIUM HYDROXIDE SUSP 30 ML UDC PO PRN (12:25)
[2020-10-17] MEDS ORDERED: traMADol HCL 50 MG TABLET PO PRN (12:25)
[2020-10-17] MEDS ORDERED: PIPERACILL/TAZOBAC CONSULT ACTIVE PRN (12:25)
[2020-10-17] MEDS ORDERED: ZOLPIDEM TARTRATE 5 MG TAB PO PRN (12:25)
[2020-10-17] MEDS ORDERED: IBUPROFEN 200 MG TAB PO PRN (12:25)
[2020-10-17] MEDS ORDERED: POLYETHYLENE (MIRALAX) 17 GM PACK PO PRN (12:25)
[2020-10-17] MEDS ORDERED: PIPERACILLIN/TAZOBACTAM 3.375 GM in DEXTROSE 5% 100 ML IV ONE (12:45)
--- NOTE | 2020-10-17 12:47 | Ultrasound Report ---
ULTRASOUND US arterial duplex LE LT CLINICAL HISTORY: Left foot infection/ necrosis COMPARISON STUDY: None FINDINGS: Real-time as well as Doppler evaluation of the arterial structures of the left leg was performed. Wa veforms are triphasic within left common femoral artery, superficial femoral artery as well as left o blique the and tibialis and peroneal arteries. Biphasic flow is seen within profunda. Velocity charac teristics are unremarkable. The following blood pressure indices were obtained. On the right, posterior tibial is 156 and dorsal is pedis is 162. On the left, posterior tibial is 144 and dorsalis pedis is 153. IMPRESSION: No evidence of focal occlusion or significant stenosis within arteries of the left lower extremity Electronically signed by: Amy Marroquin DO 10/17/2020 12:45 PM
[2020-10-17] MEDS: ACETAMINOPHEN 325 MG TAB PO PRN ×2 (13:30→22:46)
[2020-10-17] MEDS: CLINDAMYCIN 900 MG in DEXTROSE 5% 50 ML IV SCH ×2 (14:08→22:28)
[2020-10-17] MEDS: PIPERACILLIN/TAZOBACTAM 3.375 GM in DEXTROSE 5% 100 ML IV SCH (18:04)
--- NOTE | 2020-10-17 18:41 | Orthopedic Consultation ---
Date of Consultation October 17, 2020 Assessment & Plan (1) Cellulitis of foot, left: Continue with IV antibiotics, will obtain MRI of the left foot, n.p.o. after midnight in case of surgical intervention/I&D is indicated. Thank you for the consultation. History of Present Illness Reason for Consultation: Left foot infection Attending Physician: Javon Yarbrough DO History of Present Illness The patient is a 50-year-old male who presented to [facility] emergency department secondary to left foot pain and swelling which began 2 days prior. Developed in the second webspace on his left foot, does not recall injury and unsure insect bite had occurred. Admits to fevers and chills previously however denies at this time. Denies chest pain shortness of breath nausea vomiting or diarrhea. Allergies Allergy/AdvReac Type Severity Reaction Status Date / Time No Known Allergies Allergy Verified 10/17/20 09:15 Home Medications Medication Instructions Recorded Confirmed Type ibuprofen 200 mg PO Q6H PRN 10/17/20 10/17/20 History sulfamethoxazole-trimethoprim 1 tab PO BID 10/17/20 10/17/20 History [Bactrim DS] Patient History Medical History No pertinent past medical history Surgical History H/O knee surgery Family History Denies family history of Ovarian cancer Prostate cancer Myocardial infarction Breast cancer Colorectal cancer Social History Smoking Status: Never smoker Hx Alcohol Use: Yes Alcohol type: beer Alcohol Intake Frequency: Monthly or Less Hx Substance Use: No Preferred Language: [place] Communication Ability: Effective Lasting Room Supervisor Required: No Beliefs That Will Affect Care: None marital status: Current Living Situation: Spouse and Family current occupational status: employed 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 Other Information That Helps Us Care for You: No Feels Safe at Home: Yes Safety Concerns: Feels Safe At This Time Childhood Exposure to Second-Hand Smoke: Yes Dental Care, Regularly: Yes Physical Activity Frequency: Daily Seatbelt Use: always Sunscreen Use: Yes Assistive Devices: None Review of Systems Review of Systems: All systems reviewed & are unremarkable except as noted in HPI & below Constitutional: as per Subjective / HPI Physical Exam Physical Exam: Left lower extremity is neurovascular and sensory intact grossly, +2 dorsalis pedis pulse, + erythema and edema with induration of the second webspace, skin is clean dry and intact, dusky appearance of the second webspace with induration. Dorsal foot erythema. Constitutional: WD/WN, vitals as above Results & Data ([place]) Vital Signs (Past 12 Hours) Vital Signs Temp Pulse Pulse Resp BP BP Pulse Ox 10/17/20 15:27 36.7 C 84 18 124/67 95 10/17/20 12:30 36.8 C 55 L 16 127/72 97 10/17/20 10:34 60 16 122/68 96 10/17/20 08:08 36.4 C L 91 H 16 108/67 96 Diagnostic Findings LEFT FOOT 3 VIEWS CLINICAL HISTORY: Left foot infection. FINDINGS: 3 views of the left foot are obtained No prior studies are available for comparison at the time of dictation. The skeletal structures are well mineralized. No fracture is seen. There is no bony erosion or periostitis. The joint spaces of the foot are maintained. Mild spurring is seen along the dorsal aspect of the tarsal bones. Mild soft tissue edema is suggested overlying the fifth metatarsophalangeal joint. No subcutaneous gas or radiodense foreign body is identified. IMPRESSION: 1. No acute bony abnormality is identified. 2. Soft tissue swelling is suggested overlying the fifth metatarsophalangeal joint. Clinical correlation will be required.
[2020-10-17] MEDS: oxyCODONE HCL IR 5 MG TAB (IMMEDIATE RELEASE) PO PRN (19:42)
--- NOTE | 2020-10-17 20:59 | XRay Report ---
XR orbits for MRI HISTORY: 50 years-old Male Screening for foreign body for MRI COMPARISON: None TECHNIQUE: 3 views of the orbits FINDINGS: No opaque foreign body of the orbits identified. Dental amalgam hardware. The mastoid air cells and p aranasal sinuses appear to be generally clear. No acute calvarial or facial bone fracture. IMPRESSION: No opaque foreign body of the orbits. ACT 112: Negative or not required by law. The above report was generated using voice recognition software. It may contain grammatical, syntax o r spelling errors. Electronically signed by: Neftali Coffey M.D. 10/17/2020 8:58 PM
[2020-10-18] MEDS: PIPERACILLIN/TAZOBACTAM 3.375 GM in DEXTROSE 5% 100 ML IV SCH ×3 (02:07→17:34)
[2020-10-18] MEDS: CLINDAMYCIN 900 MG in DEXTROSE 5% 50 ML IV SCH ×3 (04:55→20:59)
[2020-10-18] MEDS ORDERED: KETOROLAC TROMETHAMINE 15 MG/ML VIAL IV ONE (05:14)
[2020-10-18 06:27] LABS: Basophils # (auto) 0.01 K/uL (0-0.2); Basophils % (auto) 0.2 %; Eosinophils # (auto) 0.01 K/uL (0-0.5); Eosinophils % (auto) 0.2 %; Hematocrit (blood only) 39.5 % (42-52); Hemoglobin 13.5 g/dL (14.0-18.0); Lymphocytes # (auto) 0.62 K/uL (1.2-3.4); Lymphocytes % (auto) 13.7 %; Mean Corpuscular Hemoglobin 30.2 pg (25-34); Mean Corpuscular Hgb Conc 34.2 g/dL (32-36); Mean Corpuscular Volume 88.4 fL (80-100); Mean Platelet Volume 9.7 fL (7.4-10.4); Monocytes # (auto) 0.59 K/uL (0.11-0.59); Monocytes % (auto) 13.1 %; Neutrophils # (auto) 3.29 K/uL (1.4-6.5); Neutrophils % (auto) 72.8 %; Platelet Count 108 K/uL (130-400); RDW Coefficient of Variation 12.8 % (11.5-14.5); RDW Standard Deviation 41.2 fL (36.4-46.3); Red Blood Count 4.47 M/uL (4.7-6.1); White Blood Count 4.52 K/uL (4.8-10.8)
[2020-10-18 06:50] LABS: BUN Creatinine Ratio 11.5 (10-20); Calcium 8.6 mg/dl (8.5-10.1); Est GFR (African American) 74.3 ml/min; Est GFR (Non-African American) 64.1 ml/min; Potassium 3.7 mmol/L (3.5-5.1)
--- NOTE | 2020-10-18 08:15 | Magnetic Resonance Report ---
MR foot LT w/o con HISTORY: 50 years-old Male infection soft tissue infection of the left second and third toes. COMPARISON: Left foot radiographs 10/17/2020 TECHNIQUE: Multiplanar multisequence MRI of the left foot was obtained without the use of IV contrast . FINDINGS: There is mild subcutaneous edema of the forefoot, most pronounced in the second and third toes. No di screte fluid collection. No intermetatarsal bursitis or perineural fibrosis (Queen neuroma). There i s mild marginal spurring of the metatarsal phalangeal and interphalangeal joints. No acute fracture, dislocation, marrow replacement or osseous erosion identified. The plantar plates appear intact. Ther e is a 0.6 x 0.5 x 1.5 cm T2 ovoid hyperintense focus volar to the proximal aspects of the third and fourth metatarsals on image 30 series 9 and image 19 series 5 which may reflect a small ganglion. The imaged flexor and extensor tendons appear intact. IMPRESSION: 1. Subcutaneous edema of the second and third toes suggestive of cellulitis. No abscess. 2. No bone marrow edema or evidence of osteomyelitis. ACT 112: Negative or not required by law. The above report was generated using voice recognition software. It may contain grammatical, syntax o r spelling errors. Electronically signed by: Neftali Coffey M.D. 10/18/2020 8:14 AM
--- NOTE | 2020-10-18 08:43 | Hospitalist Progress Note ---
Date of Service October 18, 2020 Assessment & Plan (1) Cellulitis of foot, left: Hx R Septic Patellar Bursitis 2017 with MSSA requiring I&D (was on Vanco/Zosyn and sent on Dicloxacillin x 7 days) Wound since past weekend during basketball tournament, seen by [facility] and placed on Bactrim [employer]OMIST (4 doses) Lactic 1.2, Procal negative CRP 3.19, ESR 11 -- trend in AM Continue Clinda/Zosyn Orthopedics on consult -- possible lancing this afternoon? MRI without abscess, just subcutaneous edema of the second and third toes suggestive of cellulitis Possible spider/insect bite, within markings Blood cultures pending -- temp 37.7C last evening ECHO for paradoxical source? 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 Redness and swelling decreased but still present. Pain controlled. Initially was white head prior to being seen at [facility] where he got the Bactrim (took total 4 doses) and then it turned black/necrotic with eschar. Hx MSSA in R knee ~5 years ago with septic bursa requiring drainage. Plans for Dr. Mejía to see this afternoon to possibly [place] area. Possible that could have been insect bite as he states hotel wasn't the best. Feeling warm currently -- temp check 36.7C. Blood cultures pending. Headache with pressure behind eyes like a migraine. NOT the worst headache ever. Feels like a migraine -- did get some coffee last night but nothing this morning. He states he has a basketball camp next week and an event tomorrow night that he might have to cancel but still needs to be there for the camp next week. Discussed checking for Lyme as well as ECHO for source of possible emboli for necrosis. Questions/concerns addressed at this time. Review of Systems Review of Systems: All systems reviewed & are unremarkable except as noted in HPI & below Physical Exam Constitutional: WD/WN, vitals as above cooperative and comfortable; no acute distress Eyes: + anicteric sclerae and PERRL ENMT: Ears: no hearing impairment Neck: trachea midline, no thyromegaly Respiratory: normal respiratory effort, lungs clear to auscultation Cardiovascular: RRR, no murmur, no edema Gastrointestinal (Abdomen): normal bowel sounds, soft, nontender, no hepatosplenomegaly Musculoskeletal: healed scar to R knee from prior I&D 2nd/3rd interdigit space with redness/erythema, minimally tender to palpation. within markings. no purulent material able to be expressed. pulses palpable bilaterally, NVI scab to distal 2nd digit dorsal aspect Neurologic: PERRL, EOMI, accommodation nl, no face palsy, no dysarthria Psychiatric: Orientation: alert and oriented x 3 Results & Data Results & Data ([facility]) Vital Signs (Past 12 Hours) Vital Signs Temp Pulse Resp BP BP Pulse Ox 10/18/20 07:14 37 C 55 L 18 107/58 L 94 10/18/20 04:50 37.4 C 10/17/20 22:40 37.7 C H 85 18 124/73 94 Laboratory Results 10/18/20 10/18/20 10/18/20 Range/Units 06:06 06:06 06:06 WBC 4.52 L (4.8-10.8) K/uL RBC 4.47 L (4.7-6.1) M/uL Hgb 13.5 L (14.0-18.0) g/dL Hct 39.5 L (42-52) % MCV 88.4 (80-100) fL MCH 30.2 (25-34) pg MCHC 34.2 (32-36) g/dL RDW Std Deviation 41.2 (36.4-46.3) fL RDW Coeff of Damaris 12.8 (11.5-14.5) % Plt Count 108 L (130-400) K/uL MPV 9.7 (7.4-10.4) fL Immature Gran % (Auto) 0.0 % Neut % (Auto) 72.8 % Lymph % (Auto) 13.7 % [place] % (Auto) 13.1 % Eos % (Auto) 0.2 % Baso % (Auto) 0.2 % Neut # (Auto) 3.29 (1.4-6.5) K/uL Lymph # (Auto) 0.62 L (1.2-3.4) K/uL [place] # (Auto) 0.59 (0.11-0.59) K/uL Eos # (Auto) 0.01 (0-0.5) K/uL Baso # (Auto) 0.01 (0-0.2) K/uL Immature Gran # (Auto) 0.00 (0.00-0.02) K/uL ESR 15 (0-15) mm/hr Sodium 134 L (136-145) mmol/L Potassium 3.7 (3.5-5.1) mmol/L Chloride 101 (98-107) mmol/L Carbon Dioxide 28 (21-32) mmol/L Anion Gap 5.0 (3-11) BUN 15 (7-18) mg/dl Creatinine 1.30 (0.6-1.4) mg/dl Est Cr Clr Drug Dosing 100.0 Est GFR ( Amer) 74.3 ml/min Est GFR (Non-Af Amer) 64.1 ml/min BUN/Creatinine Ratio 11.5 (10-20) Glucose 102 H (70-99) mg/dl Lactate (0.4-2.0) mmol/L Calcium 8.6 (8.5-10.1) mg/dl Total Bilirubin (0.2-1) mg/dl AST (15-37) U/L ALT (12-78) U/L Alkaline Phosphatase (45-117) U/L C-Reactive Protein (0-0.29) mg/dl Total Protein (6.4-8.2) gm/dl Albumin (3.4-5.0) gm/dl Globulin (2.5-4.0) gm/dl Albumin/Globulin Ratio (0.9-2) Procalcitonin (0-0.5) ng/ml COVID-19 Eval Order SARS-CoV-2 (PCR) (Negative) 10/17/20 10/17/20 10/17/20 Range/Units 12:46 09:13 09:13 WBC (4.8-10.8) K/uL RBC (4.7-6.1) M/uL Hgb (14.0-18.0) g/dL Hct (42-52) % MCV (80-100) fL MCH (25-34) pg MCHC (32-36) g/dL RDW Std Deviation (36.4-46.3) fL RDW Coeff of Damaris (11.5-14.5) % Plt Count (130-400) K/uL MPV (7.4-10.4) fL Immature Gran % (Auto) % Neut % (Auto) % Lymph % (Auto) % [place] % (Auto) % Eos % (Auto) % Baso % (Auto) % Neut # (Auto) (1.4-6.5) K/uL Lymph # (Auto) (1.2-3.4) K/uL [place] # (Auto) (0.11-0.59) K/uL Eos # (Auto) (0-0.5) K/uL Baso # (Auto) (0-0.2) K/uL Immature Gran # (Auto) (0.00-0.02) K/uL ESR 12 (0-15) mm/hr Sodium (136-145) mmol/L Potassium (3.5-5.1) mmol/L Chloride (98-107) mmol/L Carbon Dioxide (21-32) mmol/L Anion Gap (3-11) BUN (7-18) mg/dl Creatinine (0.6-1.4) mg/dl Est Cr Clr Drug Dosing Est GFR ( Amer) ml/min Est GFR (Non-Af Amer) ml/min BUN/Creatinine Ratio (10-20) Glucose (70-99) mg/dl Lactate (0.4-2.0) mmol/L Calcium (8.5-10.1) mg/dl Total Bilirubin (0.2-1) mg/dl AST (15-37) U/L ALT (12-78) U/L Alkaline Phosphatase (45-117) U/L C-Reactive Protein (0-0.29) mg/dl Total Protein (6.4-8.2) gm/dl Albumin (3.4-5.0) gm/dl Globulin (2.5-4.0) gm/dl Albumin/Globulin Ratio (0.9-2) Procalcitonin (0-0.5) ng/ml COVID-19 Eval Order Covid19 at [facility] SARS-CoV-2 (PCR) NEGATIVE (Negative) 10/17/20 10/17/20 10/17/20 Range/Units 08:47 08:47 08:47 WBC (4.8-10.8) K/uL RBC (4.7-6.1) M/uL Hgb (14.0-18.0) g/dL Hct (42-52) % MCV (80-100) fL MCH (25-34) pg MCHC (32-36) g/dL RDW Std Deviation (36.4-46.3) fL RDW Coeff of Damaris (11.5-14.5) % Plt Count (130-400) K/uL MPV (7.4-10.4) fL Immature Gran % (Auto) % Neut % (Auto) % Lymph % (Auto) % [place] % (Auto) % Eos % (Auto) % Baso % (Auto) % Neut # (Auto) (1.4-6.5) K/uL Lymph # (Auto) (1.2-3.4) K/uL [place] # (Auto) (0.11-0.59) K/uL Eos # (Auto) (0-0.5) K/uL Baso # (Auto) (0-0.2) K/uL Immature Gran # (Auto) (0.00-0.02) K/uL ESR (0-15) mm/hr Sodium 137 (136-145) mmol/L Potassium 3.9 (3.5-5.1) mmol/L Chloride 106 (98-107) mmol/L Carbon Dioxide 26 (21-32) mmol/L Anion Gap 4.0 (3-11) BUN 12 (7-18) mg/dl Creatinine 1.18 (0.6-1.4) mg/dl Est Cr Clr Drug Dosing Not Reportable Est GFR ( Amer) 83.5 ml/min Est GFR (Non-Af Amer) 72.0 ml/min BUN/Creatinine Ratio 10.1 (10-20) Glucose 122 H (70-99) mg/dl Lactate 1.2 (0.4-2.0) mmol/L Calcium 9.0 (8.5-10.1) mg/dl Total Bilirubin 0.5 (0.2-1) mg/dl AST 13 L (15-37) U/L ALT 21 (12-78) U/L Alkaline Phosphatase 68 (45-117) U/L C-Reactive Protein 3.19 H (0-0.29) mg/dl Total Protein 6.9 (6.4-8.2) gm/dl Albumin 3.7 (3.4-5.0) gm/dl Globulin 3.1 (2.5-4.0) gm/dl Albumin/Globulin Ratio 1.2 (0.9-2) Procalcitonin < 0.05 (0-0.5) ng/ml COVID-19 Eval Order SARS-CoV-2 (PCR) (Negative) 10/17/20 10/17/20 Range/Units 08:47 08:47 WBC 5.01 (4.8-10.8) K/uL RBC 4.51 L (4.7-6.1) M/uL Hgb 13.8 L (14.0-18.0) g/dL Hct 40.6 L (42-52) % MCV 90.0 (80-100) fL MCH 30.6 (25-34) pg MCHC 34.0 (32-36) g/dL RDW Std Deviation 42.1 (36.4-46.3) fL RDW Coeff of Damaris 12.7 (11.5-14.5) % Plt Count 136 (130-400) K/uL MPV 10.3 (7.4-10.4) fL Immature Gran % (Auto) 0.2 % Neut % (Auto) 78.0 % Lymph % (Auto) 10.8 % [place] % (Auto) 10.0 % Eos % (Auto) 0.8 % Baso % (Auto) 0.2 % Neut # (Auto) 3.91 (1.4-6.5) K/uL Lymph # (Auto) 0.54 L (1.2-3.4) K/uL [place] # (Auto) 0.50 (0.11-0.59) K/uL Eos # (Auto) 0.04 (0-0.5) K/uL Baso # (Auto) 0.01 (0-0.2) K/uL Immature Gran # (Auto) 0.01 (0.00-0.02) K/uL ESR 11 (0-15) mm/hr Sodium (136-145) mmol/L Potassium (3.5-5.1) mmol/L Chloride (98-107) mmol/L Carbon Dioxide (21-32) mmol/L Anion Gap (3-11) BUN (7-18) mg/dl Creatinine (0.6-1.4) mg/dl Est Cr Clr Drug Dosing Est GFR ( Amer) ml/min Est GFR (Non-Af Amer) ml/min BUN/Creatinine Ratio (10-20) Glucose (70-99) mg/dl Lactate (0.4-2.0) mmol/L Calcium (8.5-10.1) mg/dl Total Bilirubin (0.2-1) mg/dl AST (15-37) U/L ALT (12-78) U/L Alkaline Phosphatase (45-117) U/L C-Reactive Protein (0-0.29) mg/dl Total Protein (6.4-8.2) gm/dl Albumin (3.4-5.0) gm/dl Globulin (2.5-4.0) gm/dl Albumin/Globulin Ratio (0.9-2) Procalcitonin (0-0.5) ng/ml COVID-19 Eval Order SARS-CoV-2 (PCR) (Negative) Diagnostic Findings Duplex Scan Lower Extremity Artery 10/17/20 09:56 ULTRASOUND US arterial duplex LE LT CLINICAL HISTORY: Left foot infection/ necrosis COMPARISON STUDY: None FINDINGS: Real-time as well as Doppler evaluation of the arterial structures of the left leg was performed. Waveforms are triphasic within left common femoral artery, superficial femoral artery as well as left oblique the and tibialis and peroneal arteries. Biphasic flow is seen within profunda. Velocity characteristics are unremarkable. The following blood pressure indices were obtained. On the right, posterior tibial is 156 and dorsalis pedis is 162. On the left, posterior tibial is 144 and dorsalis pedis is 153. IMPRESSION: No evidence of focal occlusion or significant stenosis within arteries of the left lower extremity Electronically signed by: Amy Marroquin DO 10/17/2020 12:45 PM Foot MRI 10/17/20 18:36 MR foot LT w/o con HISTORY: 50 years-old Male infection soft tissue infection of the left second and third toes. COMPARISON: Left foot radiographs 10/17/2020 TECHNIQUE: Multiplanar multisequence MRI of the left foot was obtained without the use of IV contrast. FINDINGS: There is mild subcutaneous edema of the forefoot, most pronounced in the second and third toes. No discrete fluid collection. No intermetatarsal bursitis or perineural fibrosis (Queen neuroma). There is mild marginal spurring of the metatarsal phalangeal and interphalangeal joints. No acute fracture, dislocation, marrow replacement or osseous erosion identified. The plantar plates appear intact. There is a 0.6 x 0.5 x 1.5 cm T2 ovoid hyperintense focus volar to the proximal aspects of the third and fourth metatarsals on image 30 series 9 and image 19 series 5 which may reflect a small ganglion. The imaged flexor and extensor tendons appear intact. IMPRESSION: 1. Subcutaneous edema of the second and third toes suggestive of cellulitis. No abscess. 2. No bone marrow edema or evidence of osteomyelitis. ACT 112: Negative or not required by law. The above report was generated using voice recognition software. It may contain grammatical, syntax or spelling errors. Electronically signed by: Neftali Coffey M.D. 10/18/2020 8:14 AM Orbit X-Ray 10/17/20 19:42 XR orbits for MRI HISTORY: 50 years-old Male Screening for foreign body for MRI COMPARISON: None TECHNIQUE: 3 views of the orbits FINDINGS: No opaque foreign body of the orbits identified. Dental amalgam hardware. The mastoid air cells and paranasal sinuses appear to be generally clear. No acute calvarial or facial bone fracture. IMPRESSION: No opaque foreign body of the orbits. ACT 112: Negative or not required by law. The above report was generated using voice recognition software. It may contain grammatical, syntax or spelling errors. Electronically signed by: Neftali Coffey M.D. 10/17/2020 8:58 PM PG Care Time/CCT Total # of Minutes Spent Total Time Spent with Patient: Total time spent is greater than 50% in coordination of care (as documented) at patient's floor/unit and/or counseling patient: Coding Level of Care Code 17344 Subseq Hosp Care Lvl 2 Diagnoses Cellulitis of foot, left L03.116 Skin necrosis I96 Pancytopenia D61.818
[2020-10-18] MEDS: ACETAMINOPHEN 325 MG TAB PO PRN ×2 (08:54→15:03)
--- NOTE | 2020-10-18 10:00 | Orthopedic Progress Note ---
Date of Service October 18, 2020 Assessment & Plan (1) Cellulitis of foot, left: Slow improvement of his cellulitis. MRI is noted. No abscess is seen. Subcu edema noted. We will let the patient eat today. I will have Dr. Borden reevaluate later today. Continue IV antibiotics. Weightbearing on the heel only at this time. Admission and Anticipated Discharge Date Admission Date: October 17, 2020 Subjective Patient lying in bed. Awake and alert. No complaints. He feels that his foot might feel a bit better today. Physical Exam Physical Exam: Patient with a bit less erythema noted proximally. Slowly resolving. Continues to have a dark erythema distally over the dorsum of the foot near the web space of the second and third toes. The area of dark swelling underneath the skin being either ecchymosis versus necrosis has gotten much smaller and is more of centrally located and is approximately 1 to 2 mm in width. There is no drainage at this time. He has some mild tenderness on palpation of this area. Results & Data ([facility]) Vital Signs (Past 12 Hours) Vital Signs Temp Pulse Resp BP BP Pulse Ox 10/18/20 07:14 37 C 55 L 18 107/58 L 94 10/18/20 04:50 37.4 C 10/17/20 22:40 37.7 C H 85 18 124/73 94 Diagnostic Findings Laboratory Results WBC 4.52 K/uL (4.8-10.8) L 10/18/20 06:06 RBC 4.47 M/uL (4.7-6.1) L 10/18/20 06:06 Hgb 13.5 g/dL (14.0-18.0) L 10/18/20 06:06 Hct 39.5 % (42-52) L 10/18/20 06:06 MCV 88.4 fL (80-100) 10/18/20 06:06 MCH 30.2 pg (25-34) 10/18/20 06:06 MCHC 34.2 g/dL (32-36) 10/18/20 06:06 RDW Std Deviation 41.2 fL (36.4-46.3) 10/18/20 06:06 RDW Coeff of Damaris 12.8 % (11.5-14.5) 10/18/20 06:06 Plt Count 108 K/uL (130-400) L 10/18/20 06:06 MPV 9.7 fL (7.4-10.4) 10/18/20 06:06 Immature Gran % (Auto) 0.0 % 10/18/20 06:06 Neut % (Auto) 72.8 % 10/18/20 06:06 Lymph % (Auto) 13.7 % 10/18/20 06:06 [place] % (Auto) 13.1 % 10/18/20 06:06 Eos % (Auto) 0.2 % 10/18/20 06:06 Baso % (Auto) 0.2 % 10/18/20 06:06 Neut # (Auto) 3.29 K/uL (1.4-6.5) 10/18/20 06:06 Lymph # (Auto) 0.62 K/uL (1.2-3.4) L 10/18/20 06:06 [place] # (Auto) 0.59 K/uL (0.11-0.59) 10/18/20 06:06 Eos # (Auto) 0.01 K/uL (0-0.5) 10/18/20 06:06 Baso # (Auto) 0.01 K/uL (0-0.2) 10/18/20 06:06 Immature Gran # (Auto) 0.00 K/uL (0.00-0.02) 10/18/20 06:06 ESR 15 mm/hr (0-15) 10/18/20 06:06 Sodium 134 mmol/L (136-145) L 10/18/20 06:06 Potassium 3.7 mmol/L (3.5-5.1) 10/18/20 06:06 Chloride 101 mmol/L (98-107) 10/18/20 06:06 Carbon Dioxide 28 mmol/L (21-32) 10/18/20 06:06 Anion Gap 5.0 (3-11) 10/18/20 06:06 BUN 15 mg/dl (7-18) 10/18/20 06:06 Creatinine 1.30 mg/dl (0.6-1.4) 10/18/20 06:06 Est Cr Clr Drug Dosing 100.0 ml/min 10/18/20 06:06 Est GFR ( Amer) 74.3 ml/min 10/18/20 06:06 Est GFR (Non-Af Amer) 64.1 ml/min 10/18/20 06:06 BUN/Creatinine Ratio 11.5 (10-20) 10/18/20 06:06 Glucose 102 mg/dl (70-99) H 10/18/20 06:06 Lactate 1.2 mmol/L (0.4-2.0) 10/17/20 08:47 Calcium 8.6 mg/dl (8.5-10.1) 10/18/20 06:06 Total Bilirubin 0.5 mg/dl (0.2-1) 10/17/20 08:47 AST 13 U/L (15-37) L 10/17/20 08:47 ALT 21 U/L (12-78) 10/17/20 08:47 Alkaline Phosphatase 68 U/L (45-117) 10/17/20 08:47 C-Reactive Protein 3.19 mg/dl (0-0.29) H 10/17/20 08:47 Total Protein 6.9 gm/dl (6.4-8.2) 10/17/20 08:47 Albumin 3.7 gm/dl (3.4-5.0) 10/17/20 08:47 Globulin 3.1 gm/dl (2.5-4.0) 10/17/20 08:47 Albumin/Globulin Ratio 1.2 (0.9-2) 10/17/20 08:47 Procalcitonin < 0.05 ng/ml (0-0.5) 10/17/20 08:47 COVID-19 Eval Order Covid19 at [facility] 10/17/20 09:13 SARS-CoV-2 (PCR) NEGATIVE (Negative) 10/17/20 09:13 Impressions Foot X-Ray 10/17/20 08:33 LEFT FOOT 3 VIEWS CLINICAL HISTORY: Left foot infection. FINDINGS: 3 views of the left foot are obtained No prior studies are available for comparison at the time of dictation. The skeletal structures are well mineralized. No fracture is seen. There is no bony erosion or periostitis. The joint spaces of the foot are maintained. Mild spurring is seen along the dorsal aspect of the tarsal bones. Mild soft tissue edema is suggested overlying the fifth metatarsophalangeal joint. No subcutaneous gas or radiodense foreign body is identified. IMPRESSION: 1. No acute bony abnormality is identified. 2. Soft tissue swelling is suggested overlying the fifth metatarsophalangeal joint. Clinical correlation will be required. Electronically signed by: Ricci Schmidt M.D. 10/17/2020 8:57 AM Foot MRI 10/17/20 18:36 MR foot LT w/o con HISTORY: 50 years-old Male infection soft tissue infection of the left second and third toes. COMPARISON: Left foot radiographs 10/17/2020 TECHNIQUE: Multiplanar multisequence MRI of the left foot was obtained without the use of IV contrast. FINDINGS: There is mild subcutaneous edema of the forefoot, most pronounced in the second and third toes. No discrete fluid collection. No intermetatarsal bursitis or perineural fibrosis (Queen neuroma). There is mild marginal spurring of the metatarsal phalangeal and interphalangeal joints. No acute fracture, dislocation, marrow replacement or osseous erosion identified. The plantar plates appear intact. There is a 0.6 x 0.5 x 1.5 cm T2 ovoid hyperintense focus volar to the proximal aspects of the third and fourth metatarsals on image 30 series 9 and image 19 series 5 which may reflect a small ganglion. The imaged flexor and extensor tendons appear intact. IMPRESSION: 1. Subcutaneous edema of the second and third toes suggestive of cellulitis. No abscess. 2. No bone marrow edema or evidence of osteomyelitis. ACT 112: Negative or not required by law. The above report was generated using voice recognition software. It may contain grammatical, syntax or spelling errors. Electronically signed by: Neftali Coffey M.D. 10/18/2020 8:14 AM
--- NOTE | 2020-10-18 12:21 | XCELERA ---
[id number]
[2020-10-18 15:03] LABS: Lyme Ab IgG w/WB Rflx Negative (Negative); Lyme Ab IgM w/WB Rflx Negative (Negative)
[2020-10-18] MEDS: oxyCODONE HCL IR 5 MG TAB (IMMEDIATE RELEASE) PO PRN (20:59)
[2020-10-19] MEDS: PIPERACILLIN/TAZOBACTAM 3.375 GM in DEXTROSE 5% 100 ML IV SCH ×2 (03:21→10:59)
[2020-10-19] MEDS: CLINDAMYCIN 900 MG in DEXTROSE 5% 50 ML IV SCH (05:26)
[2020-10-19 06:15] LABS: Basophils # (auto) 0.01 K/uL (0-0.2); Basophils % (auto) 0.2 %; Eosinophils # (auto) 0.13 K/uL (0-0.5); Eosinophils % (auto) 3.2 %; Hematocrit (blood only) 40.3 % (42-52); Hemoglobin 13.7 g/dL (14.0-18.0); Immature Granulocytes # (auto) 0.01 K/uL (0.00-0.02); Immature Granulocytes % (auto) 0.2 %; Lymphocytes % (auto) 21.9 %; Mean Corpuscular Hemoglobin 29.8 pg (25-34); Mean Corpuscular Volume 87.8 fL (80-100); Mean Platelet Volume 9.6 fL (7.4-10.4); Monocytes # (auto) 0.63 K/uL (0.11-0.59); Monocytes % (auto) 15.3 %; Neutrophils # (auto) 2.43 K/uL (1.4-6.5); Neutrophils % (auto) 59.2 %; Platelet Count 106 K/uL (130-400); RDW Coefficient of Variation 12.8 % (11.5-14.5); RDW Standard Deviation 41.4 fL (36.4-46.3); Red Blood Count 4.59 M/uL (4.7-6.1); White Blood Count 4.11 K/uL (4.8-10.8)
[2020-10-19 06:42] LABS: BUN Creatinine Ratio 14.4 (10-20); C Reactive Protein 6.02 mg/dl (0-0.29); Calcium 8.4 mg/dl (8.5-10.1); Creatinine Clr Calc Pharmacy 110.2 ml/min; Est GFR (African American) 83.5 ml/min; Potassium 4.3 mmol/L (3.5-5.1)
[2020-10-19] MEDS ORDERED: VANCOMYCIN CONSULT ACTIVE PRN (10:06)
[2020-10-19] MEDS ORDERED: VANCOMYCIN HCL 2,750 MG in SODIUM CHLORIDE 0.9% 500 ML IV ONE (10:30)
--- NOTE | 2020-10-19 10:57 | Orthopedic Progress Note ---
Date of Service October 19, 2020 Assessment & Plan (1) Cellulitis of foot, left: Much better improvement of his cellulitis. Blister cleaned last night. CX -->gram stain showing no organsims MRI is noted. No abscess is seen. Antibx changed per Medicine Service. Continue IV antibx with plans for dc tomorrow if he continues to improve. Weightbearing on the heel only at this time. Admission and Anticipated Discharge Date Admission Date: October 18, 2020 Supervising Physician Co-Signing Physician Notes Patient seen and examined. Agree agree with JEREMIAS Art's note as above. He reports that his foot is feeling much better today, and overall constitutionally feels much better every day. Likely plan for discharge home tomorrow as long as he continues to improve. Subjective Pt sitting up in bed awake and alert. He feels that his foot is feeling better today. No new complaints. Blister area de-roofed and cleaned by Dr. Borden yesterday. Small amount of drainage collected and sent for cx. Physical Exam Physical Exam: Dressing removed. Cellulitis has improved quite nicely. Less erythema noted on the dorsum of the foot. Continues with dark erythema noted near the blister area. No purulence noted around the blister area. Small black point of eschar/necrosis still present but not enlarging. Base of blistered area pink. Redressed with adaptic, 4x4's, and kerlix. Results & Data ([facility]) Vital Signs (Past 12 Hours) Vital Signs Temp Pulse Resp BP Pulse Ox 10/19/20 07:29 36.9 C 60 18 113/73 92 10/18/20 23:45 37.1 C 57 L 20 100/61 94
--- NOTE | 2020-10-19 11:40 | Pharmacy Report ---
Pharmacy Abx Initial Consult - Date of Service October 19, 2020 - Pharmacy Dosing Scope Date of Consult: 10/19/20 Consultation requested by: Dr. Jh Mcclure Pharmacy is consulted to initiate Vancomycin IV dosing therapy, order appropriate labs and adjust drug dose/frequency. - Subjective The patient is a 50 year old M admitted on 10/18/20 10:56. 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 * Pt was on bactrim 1 tab BID SCIENCE CONSULTANT but SST continued to progress * Admitted on Zosyn + clinda for concern of necrosis. SST only slowing improving so abx changed today * Outpatient bactrim dosing of 1 tab BID --> NOT MRSA dosing (2 DS tabs BID would be required) and missing strep coverage. * Inpatient zosyn + clinda coverage with strep coverage but only had weak MRSA coverage. * Hospitalist not worried about gram negative coverage since the SST is only superficial. Vanco has excellent coverage of MSSA, MRSA, and strep. * C/S pending for left foot but not impressive at this point Plan Vancomycin IV * Estimated PK Parameters: Vd 0.6 L/kg, Alejandro 0.058 hr-1, t1/2 12 hr * Loading dose: 2,750 mg (24 mg/kg) * Maintenance dose: 1,750 mg IV (15 mg/kg) every 12 hours * Goal trough level for SST : 10 to 20 mcg/mL * Trough level ordered for 10/21/20 @ 0830 (prior to 4th maintenance dose) Pharmacy will continue to follow and will adjust dose/frequency as necessary. Thank you.
--- NOTE | 2020-10-19 15:54 | Hospitalist Progress Note ---
Date of Service October 19, 2020 Assessment & Plan (1) Cellulitis of foot, left: Hx R Septic Patellar Bursitis 2017 with MSSA requiring I&D (was on Vanco/Zosyn and sent on Dicloxacillin x 7 days) - MRI without abscess, just subcutaneous edema of the second and third toes suggestive of cellulitis. - LE Arterial US with good vascular supply. - Improving today; adjusted abx to vancomycin which will have MRSA and Strep coverage. -> If continues to improve, will discharge on doxy/Keflex for good MRSA/MSSA/Strep coverage. (2) Skin necrosis: See above (3) Pancytopenia: Secondary to sickness. - Can have PCP check in 1-2 weeks to ensure it's resolved. (4) DVT prophylaxis: SCDs - Low DVT risk per admission calculator Admission and Anticipated Discharge Date Admission Date: October 18, 2020 Subjective Doing well today. No fevers/chills. The toe feels like "sandpaper" is in between where the unroofing/debridement happened. Reports no chest pain, shortness of breath, abdominal pain, nausea, or vomiting. Physical Exam Constitutional: WD/WN, vitals as above Eyes: EOM intact bilaterally; no conjunctival abnormality ENMT: external ear and nose normal, oropharynx normal Neck: trachea midline, no thyromegaly normal visual inspection Respiratory: normal respiratory effort, lungs clear to auscultation no respiratory distress Cardiovascular: RRR, no murmur, no edema Gastrointestinal (Abdomen): Inspection/Auscultation: abdomen normal to inspection; abdomen not distended Musculoskeletal: no cyanosis or clubbing, extremities motor strength 5/5 Skin: + wound (Between toes where deroofing happened. Some improving erythema.) Neurologic: moves all extremities and awake Psychiatric: Orientation: alert, oriented to person and cooperative Results & Data Results & Data ([facility]) Vital Signs (Past 12 Hours) Vital Signs Temp Pulse Resp BP BP Pulse Ox 10/19/20 15:36 36.7 C 53 L 18 117/76 97 10/19/20 07:29 36.9 C 60 18 113/73 92 PG Care Time/CCT Total # of Minutes Spent Total Time Spent with Patient: Total time spent is greater than 50% in coordination of care (as documented) at patient's floor/unit and/or counseling patient: Coding Level of Care Code 98368 Subseq Hosp Care Lvl 2 Diagnoses Cellulitis of foot, left L03.116 Skin necrosis I96 Pancytopenia D61.818 DVT prophylaxis Z29.9
[2020-10-19] MEDS: VANCOMYCIN HCL 1,750 MG in SODIUM CHLORIDE 0.9% 500 ML IV SCH (21:31)
[2020-10-20 08:37] LABS: Creatinine Clr Calc Pharmacy 128.8 ml/min; Est GFR (African American) 100.8 ml/min; Est GFR (Non-African American) 86.9 ml/min
[2020-10-20] MEDS: VANCOMYCIN HCL 1,750 MG in SODIUM CHLORIDE 0.9% 500 ML IV SCH (08:47)
--- NOTE | 2020-10-20 17:19 | Discharge Summary ---
Date of Service October 20, 2020 Admission HPI Per Admitting Provider Mr. Jin is a 50-year-old male without chronic medical conditions who presents acutely to [facility] ER today complaining of pain, swelling, and redness of his left foot, a necrotic appearing interdigital space between the left 2nd and 3rd toes, and he had fevers and chills last evening. Patient was in [place] this past weekend for a basketball tournament with his son and he was wearing a new pair of shoes, and felt some rubbing in various places, although not in the interdigital space or the primary focus of his problem is. He had a small scab on his left 3rd toe pre-existing that he thinks he got when his son stepped on his foot within the past week. Patient awoke on the morning of 10/15/2020 and had pain, swelling, and erythema of his left foot which was made worse by walking on it. He does get a pins and needle sensation in this area as well and his toes feel stiff. Patient sought medical attention at [facility] on the evening of 10/15/2020, and he was started on Bactrim DS. He thought this may initially be helping, but yesterday the erythema and redness spread up dorsum of his foot. He met with his PCP on 10/16/2020 -- and Bactrim DS was continued. Last evening he developed fever and chills stating that he could not get warm. He also felt feverish this morning but did not take his temperature at any time. Again, today when he looked at his foot the erythema had spread even further up to his anterior left ankle, and he developed a very dark area between his left 2nd and 3rd toes. He has not had any drainage from any of these areas. He denies any headache, stiff neck, malaise, or arthralgias. Other than these scab he has on his left 3rd toe, he has not had any penetrating injuries to his foot at any time. His past medical history includes a septic right infrapatellar bursitis which required surgical intervention, washouts. Patient does not have any history of MRSA or any other resistant organisms to his knowledge. Principal Diagnosis Cellulitis of left toe webspace Possible spider bite? Discharge Exam Constitutional WD/WN, vitals as above Eyes EOM intact bilaterally; no conjunctival abnormality ENMT external ear and nose normal, oropharynx normal Neck trachea midline, no thyromegaly normal visual inspection Respiratory normal respiratory effort, lungs clear to auscultation no respiratory distress Cardiovascular RRR, no murmur, no edema Gastrointestinal (Abdomen) Inspection/Auscultation: abdomen normal to inspection; abdomen not distended Musculoskeletal no cyanosis or clubbing, extremities motor strength 5/5 Skin + wound (Between toes where deroofing happened. Some improving erythema.) Neurologic moves all extremities and awake Psychiatric Orientation: alert, oriented to person and cooperative Discharge Data Allergies Allergy/AdvReac Type Severity Reaction Status Date / Time No Known Allergies Allergy Verified 10/17/20 09:15 Consultations 10/17/20 09:46 ED Decision to Admit Stat 10/17/20 12:25 Consult Orthopedic Surgery Routine Ordered Studies 10/17/20 09:56 US arterial duplex LE LT Stat 10/17/20 18:36 MRI Foot [MR foot LT w/o con] Routine Hospital Course (1) Cellulitis of foot, left: Hx R Septic Patellar Bursitis 2017 with MSSA requiring I&D (was on Vanco/Zosyn and sent on Dicloxacillin x 7 days) - MRI without abscess, just subcutaneous edema of the second and third toes suggestive of cellulitis. - LE Arterial US with good vascular supply. - Improving today; adjusted abx to vancomycin which will have MRSA and Strep coverage. -> Continued to improve. Discussed with orthopedic team and showed them picture of the wound. They felt discharge was appropriate. Discharged on doxy/Keflex for good MRSA/MSSA/Strep coverage x 7 more days. Given supplies for wound care and demonstrated all the steps while he took a video. Provided off-loading boot. Will follow up with PCP. If worsenes, will need to see PCP or orthopedic surgery. (2) Skin necrosis: See above (3) Pancytopenia: Secondary to sickness. - Can have PCP check in 1-2 weeks to ensure it's resolved. (4) DVT prophylaxis: SCDs - Low DVT risk per admission calculator Total Time Total Time Spent Total Time Spent (In Minutes): 35 Discharge Plan Discharge Items Patient Disposition: Home - Self-Care Reason For Visit: INTERDIGITAL NECROSIS LEFT FOOT, CELLULITIS Discharge Diagnosis: Left foot infection Condition on Discharge: Good Activity: Resume your previous activity Non-emergency contact: Primary Care Provider and Surgeon Call non-emergency contact if: your symptoms worsen and your temperature is above 101 Follow-up/Referrals: Mundo Mcclure, [Primary Care Provider] - 10/30/20 9:20 am Eugenio Borden MD [Surgeon] - 11/03/20 2:15 pm () Diet: Regular Addtl Attending Provider Instructions: Mr. Jin, You were admitted for an infection in your left foot toe space. Dr. Borden de brided the area to get infection out, and we had you on IV antibiotics to help kill any bacteria under the skin. We are sending you home on a pair of antibiotics that will help kill any remaining bacteria. Please start the antibiotics before bedtime tonight and continue until they are gone. If you see more redness, more purulence, more drainage, have more pain, or any other issues, please call Dr. Borden's office for an urgent visit. Pending Studies at Discharge: No Stand-Alone Forms: My [facility], Smoking Cessation Medications and DC Order Prescriptions: New tramadol 50 mg Tablet 50 mg PO Q4H PRN (Reason: pain) Qty: 10 RF: 0 doxycycline hyclate 100 mg capsule 100 mg PO BID 7 Days Qty: 14 RF: 0 cephalexin 500 mg capsule 500 mg PO QID 7 Days Qty: 28 RF: 0 Continued ibuprofen 200 mg Tablet 200 mg PO Q6H PRN (Reason: Pain) RF: 0 Discontinued sulfamethoxazole-trimethoprim [Bactrim DS] 800-160 mg tablet 1 tab PO BID RF: 0 Discharge Orders: Discharge Order (Routine); Ordered 10/20/20 Ordered By: Jh Mcclure Admission Data Admit Date/Time: 10/18/20 10:56 Attending Provider: Jh Mcclure Admit Provider: Javon Yarbrough Primary Care Provider: Mundo Mcclure Other Providers: Jay Mejía ; Jh Mcclure Other Interventions: Discharge Summary Assessment (RN) Last Done: 10/20/20 12:06 Coding Level of Care Code D/C Day Management >30 mins Diagnoses Cellulitis of foot, left L03.116 Skin necrosis I96 Pancytopenia D61.818 DVT prophylaxis Z29.9
[2020-10-21] MEDS ORDERED: VANCOMYCIN TROUGH ONE (08:30)
== END 2020-10-20 12:50 | disposition home or self-care (01) | DRG 571 ==
LOC: ED 08:03 → 3W 08:03 → SUATTDRO 10:10 → 3W 10:51